=== PATIENT | male | born 1950 | race Caucasian/White ===

== ENCOUNTER 2020-05-31 19:55 | Inpatient (IN) | payer MEDICARE, OTHER ==
[~2020-05-31] VITALS: Ht 170.2 cm; Wt 93.6 kg
[2020-05-31] MEDS ORDERED: ATOR40TA75 PO (20:44)
[2020-05-31] MEDS ORDERED: LOSA50TA88 PO (20:44)
[2020-05-31] MEDS ORDERED: FLON1SPR (20:44)
[2020-05-31] MEDS ORDERED: MAPA500T2 PO (20:44)
[2020-05-31] MEDS ORDERED: LATA0.0015 OP (20:44)
[2020-05-31] MEDS ORDERED: ALLO100T PO (20:44)
[2020-05-31] MEDS ORDERED: CETI10CA13 PO (20:44)
[2020-05-31] MEDS ORDERED: CYAN500T14 PO (20:47)
[2020-05-31] MEDS ORDERED: ONETAB9 PO (20:47)
[2020-05-31] MEDS ORDERED: ASPI81CH33 PO (20:47)
[2020-05-31] MEDS ORDERED: FISH1000 PO (20:47)
[2020-05-31] MEDS ORDERED: NS 1,000 ML IV ONE (21:30)
[2020-05-31 21:34] LABS: BASO % 0.3 % (0.0-1.0); EOS % 0.3 % (0.0-3.0); HEMATOCRIT 32.6 % (42.0-52.0); HEMOGLOBIN 10.5 g/dl (13.5-17.5); LYMPH # 1.4 10^3/uL (1.5-5.0); LYMPH % 13.9 % (24.0-44.0); MEAN CORPUSCULAR HEMOGLOBIN 32.4 pg (27.0-33.0); MEAN CORPUSCULAR HGB CONC 32.2 g/dl (32.0-36.5); MEAN CORPUSCULAR VOLUME 100.6 fl (80.0-96.0); MONO # 0.5 10^3/uL (0.0-0.8); MONO % 5.1 % (0.0-5.0); NEUTROPHILS # 8.2 10^3/uL (1.5-8.5); NEUTROPHILS % 80.2 % (36.0-66.0); PLATELET COUNT, AUTOMATED 241 10^3/uL (150-450); RED BLOOD COUNT 3.24 10^6/uL (4.30-6.10); WHITE BLOOD COUNT 10.2 10^3/uL (4.0-10.0)
[2020-05-31 21:47] LABS: ALT/SGPT 32 U/L (12-78); BILIRUBIN,DIRECT 0.3 MG/DL (0.0-0.2); BLOOD UREA NITROGEN 70 MG/DL (7-18); CALCIUM LEVEL 9.4 MG/DL (8.8-10.2); CARBON DIOXIDE LEVEL 28 MEQ/L (21-32); CHLORIDE LEVEL 103 MEQ/L (98-107); CK-MB VALUE MASS 1.9 NG/ML (<3.6); CPK CREATINE PHOSPHOKINASE 129 U/L (39-308); GLOMERULAR FILTRATION RATE 58.1 (>42); GLUCOSE, FASTING 99 MG/DL (70-100); MB/CK RELATIVE INDEX 1.47 (< OR =4); POTASSIUM SERUM 5.3 MEQ/L (3.5-5.1); SODIUM LEVEL 138 MEQ/L (136-145); TOTAL PROTEIN 6.8 GM/DL (6.4-8.2); TROPONIN I < 0.02 NG/ML (< 0.10)
[2020-05-31 21:50] LABS: PROTHROMBIN TIME 13.4 SECONDS (12.5-14.3)
--- NOTE | 2020-05-31 21:59 | REPVR ---
PROCEDURE INFORMATION: Exam: CT Head Without Contrast Exam date and time: 05/31/2020 9:45 PM Age: 69 years old Clinical indication: Other: CVA - nursing interventions must not delay CT TECHNIQUE: Imaging protocol: Computed tomography of the head without contrast. Radiation optimization: All CT scans at this facility use at least one of these dose optimization techniques: automated exposure control; mA and/or kV adjustment per patient size (includes targeted exams where dose is matched to clinical indication); or iterative reconstruction. Other technique: STROKE PROTOCOL was implemented. COMPARISON: No relevant prior studies available. FINDINGS: Brain: No acute intracranial hemorrhage is visualized. The white-blanca differentiation is preserved demonstrating no acute territorial type infarct. There are scattered foci of white matter hypodensity, likely representing small vessel ischemic disease. The acuity of the white matter disease is indeterminate. There is no midline shift. Artifact limits evaluation of the dalila. Cerebral ventricles: There is mild to moderate prominence of the ventricles and sulci, compatible with atrophy. Bones/joints: The calvarium demonstrates no evidence for a depressed fracture. Paranasal sinuses: Visualized sinuses are unremarkable. No fluid levels. Mastoid air cells: No mastoid effusion. Vasculature: Intracranial atherosclerosis visualized. Soft tissues: Unremarkable. IMPRESSION: 1. No acute intracranial hemorrhage or acute territorial type infarct. 2. There are scattered foci of white matter hypodensity, likely representing small vessel ischemic disease. 3. Mild to moderate atrophy. 4. If further evaluation is clinically indicated, an MRI of the brain is recommended. ASSESSMENT: Gail Stroke Program Early CT Score (ASPECTS) = 10 Electronically signed by: Ministerio Viera On 05/31/2020 21:59:24 PM
--- NOTE | 2020-05-31 22:01 | REPVR ---
PROCEDURE INFORMATION: Exam: XR Chest, 1 View Exam date and time: 05/31/2020 9:47 PM Age: 69 years old Clinical indication: Other: CVA TECHNIQUE: Imaging protocol: XR of the chest Views: 1 view. COMPARISON: No relevant prior studies available. FINDINGS: Lungs: There is no visualized lung consolidation. The lungs are clear. Pleural space: No pleural effusion. No pneumothorax. Heart/Mediastinum: No cardiomegaly. Vasculature: There is atherosclerotic calcification of the aortic arch. Diaphragm: Elevation of the left hemidiaphragm. Bones/joints: Hypertrophic degenerative changes are noted involving the spine. Osteopenia. IMPRESSION: 1. There is no visualized lung consolidation. 2. Elevation of the left hemidiaphragm. Electronically signed by: Ministerio Viera On 05/31/2020 22:01:17 PM
[2020-05-31 22:53] LABS: RSV AMPLIFICATION NEGATIVE (NEGATIVE)
[2020-05-31 23:51] LABS: AMPHETAMINES LEVEL URINE NEGATIVE (NEGATIVE); BARBITURATES URINE NEGATIVE (NEGATIVE); BENZODIAZEPINES URINE NEGATIVE (NEGATIVE); CANNABINOIDS URINE NEGATIVE (NEGATIVE); COCAINE METABOLITE URINE NEGATIVE (NEGATIVE); METHADONE URINE NEGATIVE (NEGATIVE); OPIATES URINE NEGATIVE (NEGATIVE); PHENCYCLIDINE URINE NEGATIVE (NEGATIVE)
--- OUTSIDE RECORDS SUMMARY | 2020-06-01 01:48 | CCD ---
Author Author [facility] Organization [facility] Address Unknown Phone Unavailable Care Team Providers Care Premix Operator Concentrate Name Role Phone Radha Corbett SLITTER AND REWINDER Unavailable Radha Corbett SLITTER AND REWINDER Unavailable Radha Corbett SLITTER AND REWINDER Unavailable Radha Corbett SLITTER AND REWINDER Unavailable Radha Corbett SLITTER AND REWINDER Unavailable Radha Corbett SLITTER AND REWINDER Unavailable Radha Corbett SLITTER AND REWINDER Unavailable Radha Corbett SLITTER AND REWINDER Unavailable Lolis Batista MD Unavailable Unavailable Lolis Batista MD Unavailable Unavailable Lolis Batista MD Unavailable Unavailable Lolis Batista MD Unavailable Unavailable Lolis Batista MD Unavailable Unavailable Lolis Batista MD Unavailable Unavailable Lolis Batista MD Unavailable Unavailable Lolis Batista MD Unavailable Unavailable Lolis Batista MD Unavailable Unavailable Lolis Batista MD Unavailable Unavailable Lolis Batista MD Unavailable Unavailable Lolis Batista MD Unavailable Unavailable Lolis Batista MD Unavailable Unavailable RASHIDA, R ANGELA ASSOCIATE PUBLISHER Unavailable Unavailable RASHIDA, R ANGELA ASSOCIATE PUBLISHER Unavailable Unavailable RASHIDA, R ANGELA ASSOCIATE PUBLISHER Unavailable Unavailable RASHIDA, R ANGELA ASSOCIATE PUBLISHER Unavailable Unavailable RASHIDA, R ANGELA ASSOCIATE PUBLISHER Unavailable Unavailable RASHIDA, R ANGELA ASSOCIATE PUBLISHER Unavailable Unavailable RASHIDA, R ANGELA ASSOCIATE PUBLISHER Unavailable Unavailable RASHIDA, R ANGELA ASSOCIATE PUBLISHER Unavailable Unavailable RASHIDA, R ANGELA ASSOCIATE PUBLISHER Unavailable Unavailable RASHIDA, R ANGELA ASSOCIATE PUBLISHER Unavailable Unavailable RASHIDA, R ANGELA ASSOCIATE PUBLISHER Unavailable Unavailable RASHIDA, R ANGELA ASSOCIATE PUBLISHER Unavailable Unavailable RASHIDA, R ANGELA ASSOCIATE PUBLISHER Unavailable Unavailable RASHIDA, R ANGELA ASSOCIATE PUBLISHER Unavailable Unavailable RASHIDA, R ANGELA ASSOCIATE PUBLISHER Unavailable Unavailable RASHIDA, R ANGELA ASSOCIATE PUBLISHER Unavailable Unavailable RASHIDA, R ANGELA ASSOCIATE PUBLISHER Unavailable Unavailable RASHIDA, R ANGELA ASSOCIATE PUBLISHER Unavailable Unavailable RASHIDA, R ANGELA ASSOCIATE PUBLISHER Unavailable Unavailable RASHIDA, R ANGELA ASSOCIATE PUBLISHER Unavailable Unavailable RASHIDA, R ANGELA ASSOCIATE PUBLISHER Unavailable Unavailable RASHIDA, R ANGELA ASSOCIATE PUBLISHER Unavailable Unavailable RASHIDA, R ANGELA ASSOCIATE PUBLISHER Unavailable Unavailable RASHIDA, R ANGELA ASSOCIATE PUBLISHER Unavailable Unavailable RASHIDA, R ANGELA ASSOCIATE PUBLISHER Unavailable Unavailable RASHIDA, R ANGELA ASSOCIATE PUBLISHER Unavailable Unavailable RASHIDA, R ANGELA ASSOCIATE PUBLISHER Unavailable Unavailable RASHIDA, R ANGELA ASSOCIATE PUBLISHER Unavailable Unavailable RASHIDA, R ANGELA ASSOCIATE PUBLISHER Unavailable Unavailable RASHIDA, R ANGELA ASSOCIATE PUBLISHER Unavailable Unavailable RASHIDA, R ANGELA ASSOCIATE PUBLISHER Unavailable Unavailable RASHIDA, R ANGELA ASSOCIATE PUBLISHER Unavailable Unavailable RASHIDA, R ANGELA ASSOCIATE PUBLISHER Unavailable Unavailable RASHIDA, R ANGELA ASSOCIATE PUBLISHER Unavailable Unavailable RASHIDA, R ANGELA ASSOCIATE PUBLISHER Unavailable Unavailable RASHIDA, R ANGELA ASSOCIATE PUBLISHER Unavailable Unavailable CORONADO, B NADEEM CASEY Unavailable Unavailable CORONADO, B NADEEM CASEY Unavailable Unavailable CORONADO, B NADEEM CASEY Unavailable Unavailable CORONADO, B NADEEM CASEY Unavailable Unavailable CORONADO, B NADEEM CASEY Unavailable Unavailable CORONADO, B NADEEM CASEY Unavailable Unavailable CORONADO, B NADEEM CASEY Unavailable Unavailable CORONADO, B NADEEM CASEY Unavailable Unavailable CORONADO, B NADEEM CASEY Unavailable Unavailable CORONADO, B NADEEM CASEY Unavailable Unavailable CORONADO, B NADEEM CASEY Unavailable Unavailable CORONADO, B NADEEM CASEY Unavailable Unavailable CORONADO, B NADEEM CASEY Unavailable Unavailable CORONADO, B NADEEM CASEY Unavailable Unavailable CORONADO, B NADEEM CASEY Unavailable Unavailable CORONADO, B NADEEM CASEY Unavailable Unavailable CORONADO, B NADEEM CASEY Unavailable Unavailable CORONADO, B NADEEM CASEY Unavailable Unavailable CORONADO, B NADEEM CASEY Unavailable Unavailable CORONADO, B NADEEM CASEY Unavailable Unavailable CORONADO, B NADEEM CASEY Unavailable Unavailable CORONADO, B NADEEM CASEY Unavailable Unavailable CORONADO, B NADEEM CASEY Unavailable Unavailable CORONADO, B NADEEM CASEY Unavailable Unavailable CORONADO, B NADEEM CASEY Unavailable Unavailable CORONADO, B NADEEM CASEY Unavailable Unavailable CORONADO, B NADEEM CASEY Unavailable Unavailable CORONADO, B NADEEM CASEY Unavailable Unavailable Goran Schofield MD Unavailable Unavailable Goran Schofield MD Unavailable Unavailable Goran Schofield MD Unavailable Unavailable Goran Schofield MD Unavailable Unavailable ChanduBradley zhaondra Unavailable Unavailable Chandu, Magendra Unavailable Unavailable ChanduBradley zhaondra Unavailable Unavailable ChanduBradley zhaondra Unavailable Unavailable ChanduBradley zhaondra Unavailable Unavailable ChanduBradley zhaondra MD Unavailable Unavailable ChanduBradley zhaondra MD Unavailable Unavailable Chandu, Magendra MD Unavailable Unavailable Chandu, Magendra MD Unavailable Unavailable ChanduBradley zhaondra MD Unavailable Unavailable ChanduBradley zhaondra MD Unavailable Unavailable ChanduBradley zhaondra MD Unavailable Unavailable Chandu, Magendra MD Unavailable Unavailable ChanduBradley zhaondra MD Unavailable Unavailable ChanduBradley zhaondra MD Unavailable Unavailable ChanduBradley zhaondra MD Unavailable Unavailable ChanduBradley zhaondra MD Unavailable Unavailable ChanduBradley zhaondra MD Unavailable Unavailable ChanduBradley zhaondra MD Unavailable Unavailable ChanduBradley zhaondra MD Unavailable Unavailable ChanduBradley zhaondra MD Unavailable Unavailable ChanduBradley zhaondra MD Unavailable Unavailable ChanduBradley zhaondra MD Unavailable Unavailable ChanduBradley zhaondra Unavailable Unavailable ChanduBradley zhaondra MD Unavailable Unavailable ChanduBradley zhaondra MD Unavailable Unavailable ChanduBradley zhaondra MD Unavailable Unavailable Bradley Schofieldndra Unavailable Unavailable Bradley Schofieldndra Unavailable Unavailable Bradley Schofieldndra Unavailable Unavailable ChanduBradley zhaondra MD Unavailable Unavailable Bradley Schofieldndra Unavailable Unavailable Bradley Schofieldndra Unavailable Unavailable Bradley Schofieldndra Unavailable Unavailable Bradley Schofieldndra Unavailable Unavailable Bradley Schofieldndra Unavailable Unavailable Bradley Schofieldndra Unavailable Unavailable Bradley Schofieldndra Unavailable Unavailable Bradley Schofieldndra Unavailable Unavailable Bradley Schofieldndra Unavailable Unavailable Mychal Lacy MD Unavailable Unavailable Mychal Lacy MD Unavailable Unavailable Mychal Lacy MD Unavailable Unavailable Mychal Lacy MD Unavailable Unavailable Mychal Lacy MD Unavailable Unavailable Mychal Lacy MD Unavailable Unavailable Mychal Lacy MD Unavailable Unavailable Mychal Lacy MD Unavailable Unavailable Mychal Lacy MD Unavailable Unavailable Mychal Lacy MD Unavailable Unavailable Mychal Lacy MD Unavailable Unavailable Ha Griffiths MD Unavailable [phone] Aye, Ha Tarango MD Unavailable [phone] Aye, Ha Tarango MD Unavailable [phone] Aye, Ha Tarango MD Unavailable [phone] Aye, Ha Tarango MD Unavailable [phone] Aye, Ha Tarango MD Unavailable [phone] Venu, A Erwin PA Unavailable Venu, A Erwin PA Unavailable Venu, A Erwin PA Unavailable Venu, A Erwin PA Unavailable Venu, A Erwin PA Unavailable Venu, A Erwin PA Unavailable Venu, A Erwin PA Unavailable Venu, A Erwin PA Unavailable Venu, A Erwin PA Unavailable Hadian, Adelso Unavailable Unavailable Hadian, Adelso Unavailable Unavailable Hadian, Adelso Unavailable Unavailable Hadian, Adelso Unavailable Unavailable Hadian, Adelso Unavailable Unavailable Hadian, Adelso Unavailable Unavailable Hadian, Adelso Unavailable Unavailable Hadian, Adelso Unavailable Unavailable Hadian, Adelso Unavailable Unavailable Hadian, Adelso Unavailable Unavailable Hadian, Adelso Unavailable Unavailable Hadian, Adelso Unavailable Unavailable Hadian, Adelso Unavailable Unavailable Hadian, Adelso Unavailable Unavailable Hadian, Adelso Unavailable Unavailable Hadian, Adelso Unavailable Unavailable Hadian, Adelso Unavailable Unavailable Hadian, Adelso Unavailable Unavailable Hadian, Daelso Unavailable Unavailable Hadian, Adelso Unavailable Unavailable Hadian, Adelso Unavailable Unavailable Hadian, Adelso Unavailable Unavailable Hadian, Adelso Unavailable Unavailable Hadian, Adelso Unavailable Unavailable Hadian, Adelso Unavailable Unavailable Hadian, Adelso Unavailable Unavailable Hadian, Adelso Unavailable Unavailable Hadian, Adelso Unavailable Unavailable Hadian, Adelso Unavailable Unavailable Hadian, Adelso Unavailable Unavailable Hadian, Adelso Unavailable Unavailable Hadian, Adelso Unavailable Unavailable Hadian, Adelso Unavailable Unavailable GALIMIDI CHANDRA DPM, J Chandra DPM Unavailable GALIMIDI CHANDRA DPM, J Chandra DPM Unavailable GALIMIDI CHANDRA DPM, J Chandra DPM Unavailable GALIMIDI CHANDRA DPM, J Chandra DPM Unavailable GALIMIDI CHANDRA DPM, J Chandra DPM Unavailable GALIMIDI CHANDRA DPM, J Chandra DPM Unavailable GALIMIDI CHANDRA DPM, J Chandra DPM Unavailable GALIMIDI CHANDRA DPM, J Chandra DPM Unavailable Bang, Erwin DO Unavailable Unavailable Cuenca, Erwin DO Unavailable Unavailable Cuenca, Erwin DO Unavailable Unavailable Cuenca, Erwin DO Unavailable Unavailable Cuenca, Erwin DO Unavailable Unavailable Cuenca, Erwin DO Unavailable Unavailable Cuenca, Erwin DO Unavailable Unavailable Cuenca, Erwin DO Unavailable Unavailable Cuenca, Erwin DO Unavailable Unavailable Cuenca, Erwin DO Unavailable Unavailable Cuenca, Erwin DO Unavailable Unavailable Cuenca, Erwin DO Unavailable Unavailable Cuenca, Erwin DO Unavailable Unavailable Cuenca, Erwin DO Unavailable Unavailable Cuenca, Erwin DO Unavailable Unavailable Cuenca, Erwin DO Unavailable Unavailable Cuenca, Erwin DO Unavailable Unavailable Re-disclosure Warning The records that you are about to access may contain information from federally-assisted alcohol or drug abuse programs. If such information is present, then the following federally mandated warning applies: This information has been disclosed to you from records protected by federal confidentiality rules (42 CFR part 2). The federal rules prohibit you from making any further disclosure of this information unless further disclosure is expressly permitted by the written consent of the person to whom it pertains or as otherwise permitted by 42 CFR part 2. A general authorization for the release of medical or other information is NOT sufficient for this purpose. The Federal rules restrict any use of the information to criminally investigate or prosecute any alcohol or drug abuse patient.The records that you are about to access may contain highly sensitive health information, the redisclosure of which is protected by Article 27-F of the [facility] Public Health law. If you continue you may have access to information: Regarding HIV / AIDS; Provided by facilities licensed or operated by the [facility] Office of Mental Health; or Provided by the [facility] Office for People With Developmental Disabilities. If such information is present, then the following [facility] mandated warning applies: This information has been disclosed to you from confidential records which are protected by state law. State law prohibits you from making any further disclosure of this information without the specific written consent of the person to whom it pertains, or as otherwise permitted by law. Any unauthorized further disclosure in violation of state law may result in a fine or longterm sentence or both. A general authorization for the release of medical or other information is NOT sufficient authorization for further disc losure. Family History Family Member Name Family Member Gender Family Member Status Date o f Status Description Data Source(s) Unknown Unknown Problem MEDENT (Kaila Schofield MD) Encounters Encounter Providers Location Date Indications Data Source(s ) Outpatient Attender: Sukhdeep Griffiths MD CPSCAORT-[id number] 05/12 09:59:00 AM EST - 05/25/2020 10[facility]. [facility]patient Attender: ANGELA FIELD NP CPSCAORT-LABPNP 05/24/2020 04:22:00 PM EST - 05/24/2020 04:23:00 PM EST L300.5100,L300.5500,L299.9997,L100.0075,L300.5200 [facility] L300.5100,L300.5500,L299.9997,L100.0075, L300.5200 Patient discharged. Outpatient Attender: Dipesh Lacy MD CPSCAORT-SDCSDC 05/09/20 20 07:03:00 AM EST - 05/09/2020 08:43:00 AM EST [facility] CRC SCREEN Patient discharged. Outpatient CPSCAORT-LABEJN 05/06/2020 02:22:[address] [facility] Outpatient Attender: Adelso Barrett ED-LABPNP 08:27:00 AM EST - 05/06/2020 08:28:00 AM EST PRE OP [facility] PRE OP Patient discharged. Outpatient Attender: [facility] 03/08/2020 08:15:00 AM [facility] Outpatient Attender: Erwin MARROQUIN CPSCAORT-[id number] 02/09 09:27:00 AM EDT - 02/23/2020 09:28:00 AM EDT [facility] Patient discharged. Outpatient Attender: Goran Schofield MD [facility] 09:30:00 AM EDT [facility]IVAN[facility] (Goran Schofield MD) Outpatient Attender: Alida RUSSO CPSCAORT-CPSCAORT 0 02/07/2020 08:10:00 AM EDT - 02/07/2020 08:11:00 AM EDT [facility] Patient discharged. Outpatient Attender: NADEEM CORONADO MD CPSCAORT-CPSCAORT 01/30 07:55:00 AM EDT - 01/31/2020 07:56:[address] [facility] Patient discharged. Outpatient Attender: NADEEM CORONADO MD CPSCAORT-CPSCAORT 01/23 07:54:00 AM EDT - 01/24/2020 07:55:[address] [facility] Patient discharged. Outpatient Attender: Quincy Batista MD CPSCAORT-CPSCADER 0 09:13:00 AM EDT - 11/30/2019 09:14:[address] [facility] Patient discharged. Outpatient Attender: Chandra ARTIS DPM DPM CPSCAORT- CPSGNPOD 11/02/2019 09:26:00 AM EDT - 11/02/2019 09:27:00 AM EDT [facility] Patient discharged. Outpatient Attender: Goran Schofield MD [facility] 04/2020 01:30:00 PM EDT [facility] (Goran Schofield MD) Outpatient Attender: Erwin Cuenca DO CPSCAORT-[id number] 2019 01:40:00 PM EDT - 08/19/2019 01:41:[address] [facility] Patient discharged. Outpatient Attender: Goran Schofield MD [facility] 04/2020 01:15:00 PM EDT [facility] (Goran Schofield MD) Outpatient Attender: NADEEM CORONADO MD CPSCAORT-CPSCAORT 07/20 09:43:00 AM EDT - 07/21/2019 09:44:[address] [facility] Patient discharged. Outpatient Attender: NADEEM CORONADO MD CPSCAORT-CPSCAORT 07/13 09:45:00 AM EST - 07/14/2019 09:46:[address] [facility] Patient discharged. Outpatient Attender: NADEEM CORONADO MD CPSCAORT-CPSCAORT 07/07 11:36:00 AM EST - 07/07/2019 11:37:[address] [facility] Patient discharged. Outpatient Attender: ANGELA FIELD NP CPSCAORT-IMACN 07/01/2019 10:43:00 AM EST - 07/01/2019 10:44:00 AM [facility] Outpatient Attender: ANGELA FIELD NP CPSCAORT-LABCN 06/15/2019 02:30:00 PM EST - 06/15/2019 02:31:00 PM EST I10 [facility] al I10 Patient discharged. Outpatient Attender: Quincy Batista MD CPSCAORT-CPSCADER 0 09:01:00 AM EST - 06/07/2019 09:02:[address] [facility] Patient discharged. Outpatient Attender: ANGELA FIELD NP CPSCAORT-LABPNP 06/02/2019 10:51:00 AM EST - 06/02/2019 10:52:00 AM EST I10; E55.9; Z12.5 [facility] pital I10; E55.9; Z12.5 Patient discharged. Outpatient Attender: Erwin Cuenca DO, [facility] 05/26/19 10:54:00 AM EST - 05/26/2019 10:55:00 AM EST I10 [facility] I10 Patient discharged. Outpatient Attender: Sukhdeep Griffiths MD CPSCAORT-[id number] 05/12 10:46:00 AM EST - 05/25/2019 10:47:00 AM [facility] Outpatient Attender: Erwin Cuenca DO CPSCAORT-[id number] 2019 08:43:00 AM EST - 05/20/2019 08:44:[address] [facility] Patient discharged. Outpatient Attender: Goran Schofield MD [facility] 04/2019 12:00:00 PM [facility] (Goran Schofield MD) Insurance Providers Payer name Policy type / Coverage type Policy ID Covered alliance party ID Covered alliance party's relationship to arechiga Policy Arechiga Plan Information [facility] [id number] SP [id number] [facility] [id number] SP [id number] [employer] [id number] Retired [id number] FOR[facility]LY [facility] MEDICARE [id number] Retired [id number] [facility] Commercial [id number] Self [id number] Problems, Conditions, and Diagnoses Code Display Name Description Problem Type Effective Dates Data Source(s) R41.3 Other amnesia OTHER AMNESIA Diagnosis 05/24/2020 04:22:00 PM [facility] N39.41 Urge incontinence URGE INCONTINENCE Diagnosis 05/24/2020 04:22:00 PM [facility] Z86.19 Personal history of other infectious and parasitic diseases PERSONAL HISTORY OF OTHER INFECTIOUS AND PARASITIC DISEASES Diagnosis 07:03:00 AM [facility] M12.88 Other specific arthropathies , not elsewhere classified, other specified site OTH SPECIFIC ARTHROPATHIES, NEC, OTH SITE Diagnosis 05/09/2020 07:03:00 AM [facility] I10 Essential (primary) hypertension ESSENTIAL (PRIMARY) H YPERTENSION Diagnosis 05/09/2020 07:03:00 AM [facility] Z12.11 Encounter for screening for malignant ne oplasm of colon ENCOUNTER FOR SCREENING FOR MALIGNANT NEOPLASM OF COLON Diagnosis 05/09/2020 07:03:0 0 AM [facility] Z11.59 Encounter for screening for other viral diseases ENCOUNTER FOR SCREENING FOR OTHER VIRAL DISEASES Diagnosis 05/06/2020 08:27:00 AM [facility] Z01.812 Encounter for preprocedural laboratory e xamination ENCOUNTER FOR PREPROCEDURAL LABORATORY EXAMINATION Diagnosis 05/06/2020 08:27:00 AM [facility] X32.XXXS Exposure to sunlight, sequela EXPOSURE TO SUNLIGHT, SE QUELA Diagnosis 03/08/2020 08:15:[address] [facility] D22.72 Melanocytic nevi of left lower limb, inc luding hip MELANOCYTIC NEVI OF LEFT LOWER LIMB, INCLUDING HIP Diagnosis 03/08/2020 08:15:00 AM EDT [facility] D22.71 Melanocytic nevi of right lower limb, in cluding hip MELANOCYTIC NEVI OF RIGHT LOWER LIMB, INCLUDING HIP Diagnosis 03/08/2020 08:15:00 AM EDT [facility] D22.62 Melanocytic nevi of left upper limb, inc luding shoulder MELANOCYTIC NEVI OF LEFT UPPER LIMB, INCLUDING SHOULDER Diagnosis 03/08/2020 08:15:[address] [facility] D22.61 Melanocytic nevi of right upper limb, in cluding shoulder MELANOCYTIC NEVI OF RIGHT UPPER LIMB, INCLUDING SHOULDER Diagnosis 03/08/2020 08:15:[address] [facility] L81.4 Other melanin hyperpigmentation OTHER MELANIN HYPERPIG MENTATION Diagnosis 03/08/2020 08:15:00 AM [facility] Z91.89 Other specified personal risk factors, n ot elsewhere classified OTH PERSONAL RISK FACTORS, NOT ELSEWHERE CLASSIFIED Diagnosis 2019 08:15:[address] [facility] L21.8 Other seborrheic dermatitis OTHER SEBORRHEIC DERMATITI S Diagnosis 03/08/2020 08:15:00 AM [facility] L82.1 Other seborrheic keratosis OTHER SEBORRHEIC KERATOSIS Diagnosis 03/08/2020 08:15:00 AM [facility] Z85.828 Personal history of other malignant neop lasm of skin PERSONAL HISTORY OF OTHER MALIGNANT NEOPLASM OF SKIN Diagnosis 03/08/2020 08:15:00 AM [facility] Z12.83 Encounter for screening for malignant ne oplasm of skin ENCOUNTER FOR SCREENING FOR MALIGNANT NEOPLASM OF SKIN Diagnosis 03/08/2020 08:15:00 AM [facility] 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 D22.5 Melanocytic nevi of trunk MELANOCYTIC NEVI OF TRUNK Di agnosis 03/08/2020 08:15:00 AM [facility] L57.0 Actinic keratosis ACTINIC KERATOSIS Diagnosis 03/08/2020 08:15:00 AM [facility] M17.12 Unilateral primary osteoarthritis, left knee UNILATERAL PRIMARY OSTEOARTHRITIS, LEFT KNEE Diagnosis 02/07/2020 08:10:00 AM [facility] M17.10 Unilateral primary osteoarthritis, unspe cified knee UNILATERAL PRIMARY OSTEOARTHRITIS, UNSPECIFIED KNEE Diagnosis 07/21/2019 09:43:00 AM [facility] M79.672 Pain in left foot PAIN IN LEFT FOOT Diagnosis 07/07 11:36:00 AM [facility] M25.572 Pain in left ankle and joints of left fo ot PAIN IN LEFT ANKLE AND JOINTS OF LEFT FOOT Diagnosis 07/07/2019 11:36:00 AM [facility] M25.562 Pain in left knee PAIN IN LEFT KNEE Diagnosis 07/01 10:43:00 AM [facility] Z12.5 Encounter for screening for malignant ne oplasm of prostate ENCOUNTER FOR SCREENING FOR MALIGNANT NEOPLASM OF PROSTATE Diagnosis 0 10:51:00 AM [facility] E55.9 Vitamin D deficiency, unspecified VITAMIN D DEFI CIENCY, UNSPECIFIED Diagnosis 06/02/2019 10:51:00 AM [facility] I10 Essential (primary) hypertension ESSENTIAL (PRIMARY) H YPERTENSION Diagnosis 05/26/2019 10:54:00 AM [facility] Z68.36 Body mass index (BMI) 36.0-36.9, adult B KIRSTIE MASS INDEX (BMI) 36.0-36.9, ADULT Diagnosis 05/20/2019 08:43:00 AM [facility] E66.01 Morbid (severe) obesity due to excess ca lories MORBID (SEVERE) OBESITY DUE TO EXCESS CALORIES Diagnosis 05/20/2019 08:43:00 AM [facility] R53.83 Other fatigue OTHER FATIGUE Diagnosis 05/20/2019 08:43:00 AM [facility] G47.33 Obstructive sleep apnea (adult) (pediatr ic) OBSTRUCTIVE SLEEP APNEA (ADULT) (PEDIATRIC) Diagnosis 05/20/2019 08:43:00 AM [facility] E78.2 Mixed hyperlipidemia MIXED HYPERLIPIDEMIA Diagnosis 05/20/2019 08:43:00 AM [facility] I49.8 Other specified cardiac arrhythmias OTHER SPECIF IED CARDIAC ARRHYTHMIAS Diagnosis 05/20/2019 08:43:00 AM [facility] Surgeries/Procedures Procedure Description Date Indications Data Source(s) Injection, propofol, 10 mg 05/09/2020 12:00:00 AM [facility] COLONOSCOPY FLX DX W/WO COLLJ SPECIMENS DIAGNOSTIC COLONOSCO PY 05/09/2020 12:00:00 AM [facility] Inspection of Lower Intestinal Tract, Vi a Natural or Artificial Opening Endoscopic INSPECTION OF LOWER INTESTINAL TRACT, ENDO 05/09/2020 12:00:00 AM [facility] [id number] SARS-COV-2 COVID-19 AMP PRB 05/06/2020 12:00:00 AM [facility] outpatient clinic visit for assessment and kate [place] of a patient Hospital Outpatient Clinic Visit 03/08/2020 12:00:00 AM [facility] DESTRUCTION PREMALIGNANT LESION 2-14 EA DESTRUCT PREMALG LES 2-14 03/08/2020 12:00:00 AM [facility] DESTRUCTION PREMALIGNANT LESION 1ST DESTRUCT PREMALG LESION 03/08/2020 12:00:00 AM [facility] ARTHROCENTESIS ASPIR&/INJECTION MAJOR JT/BURSA DRAIN/INJ LUIS NT/BURSA W/O US 02/07/2020 12:00:00 AM [facility] Hyaluronan or derivative, synvisc or syn visc-one, for intra-articular injection, 1 mg 02/07/2020 12:00:00 AM [facility] RADEX ANKLE COMPLETE MINIMUM 3 VIEWS X-RAY EXAM OF ANKLE 12:00:00 AM [facility] RADIOLOGIC EXAMINATION KNEE 3 VIEWS X-RAY EXAM OF KNEE 3 12:00:00 AM [facility] THYROXINE FREE ASSAY OF FREE THYROXINE 06/15/2019 12:00:00 AM [facility] THYROID STIMULATING HORMONE TSH ASSAY THYROID STIM HORMONE 0 06/15/2019 12:00:00 AM [facility] TRIIODOTHYRONINE T3 FREE FREE ASSAY (FT-3) 06/15/2019 12:00:00 AM E [facility] BASIC METABOLIC PANEL CALCIUM TOTAL METABOLIC PANEL TOTAL CA 06/15/2019 12:00:00 AM [facility] DESTRUCTION PREMALIGNANT LESION 15/> DESTROY PREMAL LESIONS 15/> 06/07/2019 12:00:00 AM [facility] ECHO TTHRC R-T 2D W/WOM-MODE COMPL SPEC&COLR DOP TTE W/DOPPL ER COMPLETE 05/26/2019 12:00:00 AM [facility] Results ID Date Data Source [id number] 05/09/2020 08:12:00 AM [facility] Name: FRITZ RUIZ : 1950 Age/Sex: 69M Attending Physician: Dipesh Lacy MD Med Rec #: [id number] Admission Date: 05/09/20 Room #: Admitting Physician: Report Number: [id number] _ cc: SERA Reyes; Dipesh Lacy MD Send Report To: Report Status - Signed Endoscopy Department Patient Name: Fritz Ruiz Attending MD: Dipesh Lacy MD Instrument Name: [id number] Procedure Date No Time: 05/09/2020 Date of : 1950 Procedure: Colonoscopy Indications: Screening for colorectal malignant neoplasm Providers: Dipesh Lacy MD Referring MD: Requesting Provider: Medicines: See the Anesthesia note for documentation of the administered medications Complications: No immediate complications. Procedure: Pre-Anesthesia Assessment: - Prior to the procedure, a History and Physical was performed, and patient medications and allergies were reviewed. The patient's tolerance of previous anesthesia was also reviewed. The risks and benefits of the procedure and the sedation options and risks were discussed with the patient. All questions were answered, and informed consent was obtained. Prior Anticoagulants: The patient has taken no previous anticoagulant or antiplatelet agents. ASA Grade Assessment: III - A patient with s evere systemic disease. After reviewing the risks and benefits, the patient was deemed in satisfactory condition to undergo the procedure. After I obtained informed consent, the scope was passed under direct vision. Throughout the procedure, the patient's blood pressure, pulse, and oxygen saturations were monitored continuously. The MODEL # [id number],SERIAL #[id number] pediatric colonoscopy scope was introduced through the anus and advanced to the cecum, identified by appendiceal orifice and ileocecal valve. The colonoscopy was performed with difficulty due to inadequate bowel prep. The patient tolerated the procedure well. The quality of the bowel preparation was evaluated using the BBPS ([place] Bowel Preparation Scale) with scores of: Right Colon = 2 (minor amount of residual staining, small fragments of stool and/or opaque liquid, but mucosa seen well), Transverse Colon = 1 (portion of mucosa seen, but other areas not well seen due to staining, residual stool and/or opaque liquid) and Left Colon = 1 (portion of mucosa seen, but other areas not well seen due to staining, residual stool and/or opaque liquid). The total BBPS score equals 4. Findings: The entire examined colon appeared normal on direct and retroflexion views. Impression: - The entire examined colon is normal on direct and retroflexion views. - No specimens collected. Recommendation: - Discharge patient to home. - Discharge patient to home. - High fiber diet. - Use fiber, for example Citrucel, Fibercon, Konsyl or Metamucil. - Repeat colonoscopy in 1 year for surveillance. - Return to primary care physician PRN. Dipesh Lacy MD 05/09/2020 8:12:36 AM This report has been signed electronically. Number of Addenda: 0 Note Initiated On: 05/09/2020 7:45 AM 50 [facility] [id number] REPORT SIGNATURE ON FILE Dictated By: Dipesh Lacy MD <Electronically signed by Dipesh Lacy MD in OV> 05/09/2013 Dictation Date/Time: 05/09/20 0745 Transcribed Date/Time: 05/09/20 08/IATRICS Name Value Range Interpretation Code Description Data Fallon rce(s) Supporting Document(s) ID Date Data Source [id number] 05/09/2020 06:56:00 AM EST [facility] Name Value Range Interpretation Code Description Data Fallon rce(s) Supporting Document(s) Respiratory specimen severe acute respir atory syndrome coronavirus 2 (SARS-CoV-2) RNA [facility] This lab was ordered by [facility] Lolis ariza and reported by [facility]. ID Date Data Source [id number] 05/09/2020 06:56:00 AM [facility] COVID-19 Specimen Source NASOPHARYNGEAL Is Patient admitted or to be admitted? NFirst test? NOEmployed in healthcare? NOSymptomatic per CDC? NOHospitalized? NOICU? NOResident in congregated care? ex retirement, ARC NO? NO Name Value Range Interpretation Code Description Data Fallon rce(s) Supporting Document(s) SARS-CoV-2 RNA Negative Normal (applies to non-numeric r esults) [facility] Negative results do not preclude 2019 oV infection and should not be used as the sole basis for treatment or other patient management decisions. Negative results must be combined with clinical observations, patient history, and epidemiological information. This test was developed and its performance characteristics determined by [facility]. It has not been cleared or approved by the US Food and Drug Administration. FDA does not require this test to go through premarket FDA review. This test is used for clinical purposes. It should not be regarded as investigational or for research. This laboratory is certified under the Clinical Laboratory Improvement Amendments (CLIA) as qualified to perform high complexity clinical laboratory testing. This test is based on the CDC COVID-19 Emergency Use Authorization (EUA) assay, with minor modification as defined by the FDA Performed on the [employer]. THIS IS A STATE REPORTABLE COMMUNICABLE DISEASE. Performing Lab Normal (applies to non-numeric r esults) [facility] RESULT: [employer] 7 [facility] Lab COVID-1 9 Specimen Source: ASSOCIATE PUBLISHER First test?: N Employed in healthcare?: N Symptomatic per CDC?: N Hospitalized?: N ICU?: N Resident in congregated care? ex retirement, ARC: N ?: N Please indicate the Triage TierN PREOP Test performed [place] [address] ID Date Data Source [id number] 05/09/2020 07:07:00 AM EST [facility] COVID-19 Specimen Source NASOPHARYNGEAL Is Patient admitted or to be admitted? NFirst test? NOEmployed in healthcare? NOSymptomatic per CDC? NOHospitalized? NOICU? NOResident in congregated care? ex retirement, ARC NO? NO Name Value Range Interpretation Code Description Data Fallon rce(s) Supporting Document(s) SARS-CoV-2 RNA Negative Normal (applies to non-numeric r esults) [facility] Negative results do not preclude 2019-nC oV infection and should not be used as the sole basis for treatment or other patient management decisions. Negative results must be combined with clinical observations, patient history, and epidemiological information. This test was developed and its performance characteristics determined by [facility]. It has not been cleared or approved by the US Food and Drug Administration. FDA does not require this test to go through premarket FDA review. This test is used for clinical purposes. It should not be regarded as investigational or for research. This laboratory is certified under the Clinical Laboratory Improvement Amendments (CLIA) as qualified to perform high complexity clinical laboratory testing. This test is based on the CDC COVID-19 Emergency Use Authorization (EUA) assay, with minor modification as defined by the FDA Performed on the [employer]. THIS IS A STATE REPORTABLE COMMUNICABLE DISEASE. Performing Lab Normal (applies to non-numeric r esults) [facility] RESULT: [employer] 7 [facility] Lab COVID-1 9 Specimen Source: ASSOCIATE PUBLISHER First test?: N Employed in healthcare?: N Symptomatic per CDC?: N Hospitalized?: N ICU?: N Resident in congregated care? ex retirement, ARC: N ?: N Please indicate the Triage TierN PREOP Test performed or referred by The [address] [address] ID Date Data Source [id number] 07/07/2019 05:19:00 PM [facility] Name: FRITZ RUIZ : 1950 Age/Sex: 69M Ordering Provider: Nadeem Coronado MD Med Rec #: [id number] Reg Status: [facility] Room #: Date of Service: 07/07/19 Report Number: [id number] cc:SERA Reyes; Nadeem Coronado MD Send Report To: [id number] XRP/XR Ankle Lt Min. 3 Views Reason for exam: LEFT ANKLE PAIN FINDINGS: I see no acute appearing fracture. Ankle mortise is smooth and symmetrical. Significant spurring about the ankle joint is not seen. There maybeslight thickening about the level of the interosseous membrane along the medial side of the distal tibia. This may reflect previous injury. There is some calcaneal spurring noted at the plantar tendon fascia insertion level, mild. What is seen of the base of the fifth metatarsal appears intact. Atheroscleroticvascular calcification is noted. IMPRESSION: Some degenerative type changes as above. No acute abnormality appreciated. Atherosclerotic vacular calcifications noted. Fluoroscopy time in seconds: Number of Exposures: Time Portable Image Performed: Contrast Agent in ml: Method of Administration: REPORT SIGNATURE ON FILE Reported By: Amy Bullard MD <Electronically signed by Amy Ott MD> 07/08/19 1504 Dictation Date/Time: 07/07/19 1328 Transcribed Date/Time: 07/07/19 1719 Hvac Designer: ARLENE Name Value Range Interpretation Code Description Data Fallon rce(s) Supporting Document(s) ID Date Data Source [id number] 07/01/2019 04:49:00 PM [facility] Name: FRITZ RUIZ : 1950 Age/Sex: 69M Ordering Provider: SERA Reyes Med Rec #: [id number] Reg Status: [facility] REF Room #: Date of Service: 07/01/19 Report Number: [id number] cc:SERA Reyes Send Report To: [id number] XRP/XR Knee Lt 3 View Reason for exam: PAIN IN LT KNEE FINDINGS: Prominent medial joint space narrowing is identified. There is also narrowing at the patellofemoral and lateral joint spaces to a lesser degree. No evidence of an acute fracture or dislocation is identified. No evidence of a joint effusion is identified. Soft tissues appear unremarkable. IMPRESSION: Degenerative changes. No acute findings. REPORT DICTATED BY STEFANIA HILLMAN, REVIEWED AND SIGNED BY DR. ARRIAGA Fluoroscopy time in seconds: Number of Exposures: Time Portable Image Performed: Contrast Agent in ml: Method of Administration: REPORT SIGNATURE ON FILE Reported By: Stefania Arriaga MD <Electronically signed by Graham Arriaga MD> 07/02/19 0800 Dictation Date/Time: 07/01/19 1139 Transcribed Date/Time: 07/01/19 1649 Hvac Designer: ARLENE Name Value Range Interpretation Code Description Data Fallon rce(s) Supporting Document(s) ID Date Data Source [id number] 06/15/2019 05:22:00 PM [facility] Name Value Range Interpretation Code Description Data Fallon rce(s) Supporting Document(s) Sodium 141 mmol/L 137-145 Normal (applies to non-numeric resul ts) [facility] Potassium 3.5-5.1 Normal (applies to non-numeric resul ts) [facility] Chloride 108 mmol/L 98-112 Normal (applies to non-numeric resul ts) [facility] Carbon Dioxide CO2 22.0-33.0 Normal (applies to non-numer ic results) [facility] Anion Gap 4.0-11.0 Normal (applies to non-numeric resul ts) [facility] BUN 21 mg/dL 9-20 Above high normal [facility] Creatinine 0.80-1.50 Normal (applies to non-numeric resul ts) [facility] GFR 61 mL/min >60 Normal (applies to non-numeric resul ts) [facility] Result based on MDRD formula. Glucose Level 102 mg/dL 74-99 Above high normal [facility] The reference range is only applicable w hen fasting. Calcium-Uncorrected 8.4-10.2 Normal (applies to non-nume julieth results) [facility] Corrected Calcium 8.4-10.2 Normal (applies to non-numeri c results) [facility] ID Date Data Source [id number] 06/15/2019 05:22:00 PM EST [facility] Name Value Range Interpretation Code Description Data Fallon rce(s) Supporting Document(s) Free T4 (Free Thyroxine) 0.76-1.46 Normal (applies to non -numeric results) [facility] ID Date Data Source [id number] 06/15/2019 05:22:00 PM EST [facility] Name Value Range Interpretation Code Description Data Fallon rce(s) Supporting Document(s) Free T3 2.18-3.98 Normal (applies to non-numeric resul ts) [facility] ID Date Data Source [id number] 06/15/2019 05:22:00 PM EST [facility] Name Value Range Interpretation Code Description Data Fallon rce(s) Supporting Document(s) Thyroid Stimulate Hormone TSH 0.358-3.740 No rmal (applies to non-numeric results) [facility] ID Date Data Source [id number] 06/02/2019 04:23:00 PM EST [facility] Name Value Range Interpretation Code Description Data Fallon rce(s) Supporting Document(s) Sodium 138 mmol/L 137-145 Normal (applies to non-numeric resul ts) [facility] Potassium 3.5-5.1 Normal (applies to non-numeric resul ts) [facility] Chloride 106 mmol/L 98-112 Normal (applies to non-numeric resul ts) [facility] Carbon Dioxide CO2 22.0-33.0 Normal (applies to non-numer ic results) [facility] Anion Gap 4.0-11.0 Normal (applies to non-numeric resul ts) [facility] BUN 18 mg/dL 9-20 Normal (applies to non-numeric resul ts) [facility] Creatinine 0.80-1.50 Normal (applies to non-numeric resul ts) [facility] GFR 56 mL/min >[address] [facility] Result based on MDRD formula. Glucose Level 99 mg/dL 74-99 Normal (applies to non-numeric re sults) [facility] The reference range is only applicable w hen fasting. Calcium-Uncorrected 8.4-10.2 Normal (applies to non-nume julieth results) [facility] Corrected Calcium 8.4-10.2 Normal (applies to non-numeri c results) [facility] Bilirubin,Total 0.2-1.3 Normal (applies to non-numeric results) [facility] SGOT(AST) 29 U/L 17-59 Normal (applies to non-numeric resul ts) [facility] SGPT(ALT) 40 U/L 21-72 Normal (applies to non-numeric resul ts) [facility] Alkaline Phosphatase 67 U/L 38-126 Normal (applies to non-num carlos results) [facility] can increase Alkaline Phosp le vels up to 2 times the normal adult value. Normal values for children and adolescents are 2 to 3 times the normal adult value. Total Protein 6.3-8.2 Normal (applies to non-numeric re sults) [facility] Albumin 3.5-5.0 Normal (applies to non-numeric resul ts) [facility] ID Date Data Source [id number] 06/02/2019 04:23:00 PM EST [facility] Name Value Range Interpretation Code Description Data Fallon rce(s) Supporting Document(s) Triglycerides 89 mg/dL 0-150 Normal (applies to non-numeric re sults) [facility] Cholesterol 100 mg/dL 0-200 Normal (applies to non-numeric resu lts) [facility] LDL Cholesterol,Direct 48 mg/dL <100 Normal (applies to non-n umeric results) [facility] LDL Interpretative Data Optimal <100 (mg/dL) Near optimal 100-129 (mg/dL) Borderline High 130-159 (mg/dL) High 160-189 (mg/dL) Very High >190 (mg/dL) HDL Cholesterol 39 mg/dL 40-[address] [facility] CHOL/HDL Ratio Normal (applies to non-numeric r esults) [facility] NATIONAL CHOLESTEROL GUIDEL [facility] ([facility]) guidelines for classificaton, testing and management of cholesterol levels in adults over 20 years of age. This new classification creates three categories of risk for coronary heart disease, regardless of age or sex, according to total amd LDL cholesterols levels: Based on total cholesterol level Desirable <200 mg/dl Borderline-high 200-239 mg/dl High >=240 mg/dl Based on cholesterol ratio CHD RISK CHOL/HDL RATIO MALE FEMALE 0.5 x Average 3.4 3.3 1.0 x Average 5.0 4.4 2.0 x Average 9.6 7.1 3.0 x Average 13.5 11.0 ID Date Data Source [id number] 06/02/2019 04:23:00 PM [facility] Value Range Interpretation Code Description Data Fallon rce(s) Supporting Document(s) PSA,Annual Screen <4.10 Normal (applies to non-numeri c results) [facility] [employer] [place] Methodology:Chemiluminesce nt immunology based on LOCI technology. PSA concentrations should not be interpreted as absolute evidence for the presence or absence of Prostatic Cancer. The PSA value should be used in conjunction with information available from clinical evaluation and other diagnostic procedures such as AILYN. Test results by other methods or kits may not be used interchangeably. ID Date Data Source [id number] 06/02/2019 04:23:00 PM [facility] Value Range Interpretation Code Description Data Fallon rce(s) Supporting Document(s) Vitamin B12 193-986 Above high normal [facility] ID Date Data Source [id number] 06/02/2019 04:23:00 PM [facility] Value Range Interpretation Code Description Data Fallon rce(s) Supporting Document(s) Thyroid Stimulate Hormone TSH 0.358-3.740 Above high shania l [facility] ID Date Data Source [id number] 06/02/2019 02:38:00 PM [facility] Value Range Interpretation Code Description Data Fallon rce(s) Supporting Document(s) Creatinine,Urine Normal (applies to non-numeric results) [facility] Interpret with care as there is no estab lished reference range associated with this assay's methodology that pertains to this particular sex and/or age. Microalbumin,Urine <1.7 Normal (applies to non-numer ic results) [facility] Albumin/Creatinine Ratio,Urine Normal (applies to non-numeric results) [facility] Reference Ranges for Microalbumin,spot: Normal <30 ug/mg creatinine Microalbuminuria 30-300 ug/mg creatinine Clinical Albuminuria >300 ug/mg creatinine ID Date Data Source [id number] 06/02/2019 02:12:00 PM EST [facility] Name Value Range Interpretation Code Description Data Fallon rce(s) Supporting Document(s) Vitamin D,Total (25OH) 30.0-100.0 Normal (applies to non-n umeric results) [facility] Reference Range: <10 ng/mL: Deficien t 10-30 ng/mL: Insufficient 30-100 ng/mL: Sufficient >100 ng/mL: Toxicity possible ID Date Data Source [id number] 06/02/2019 01:19:00 PM EST [facility] Name Value Range Interpretation Code Description Data Fallon rce(s) Supporting Document(s) White Blood Count 4.8-10.8 Below low normal [facility] Red Blood Count 4.35-6.08 Normal (applies to non-numeric results) [facility] Hemoglobin 13.0-17.5 Normal (applies to non-numeric resul ts) [facility] Hematocrit 37.7-51.0 Normal (applies to non-numeric resul ts) [facility] Mean Corpuscular Volume 80-[address] [facility] Mean Corpuscular Hemoglobin 27.0-33.[address] [facility] Mean Corpuscular HGB Conc 32.0-36.0 Normal (applies to no n-numeric results) [facility] Red Cell Distribution Width 11.5-14.5 Normal (appli es to non-numeric results) [facility] Platelet Count 241 X10 3/uL 130-450 Normal (applies to non-numeric results) [facility] Mean Platelet Volume 9.6-13.1 Normal (applies to non-num carlos results) [facility] Imm Grans% (AUTO) 0 % 0-2 Normal (applies to non-numeri c results) [facility] Neutrophils % (AUTO) 61 % 40-75 Normal (applies to non-num carlos results) [facility] Lymphocytes % (AUTO) 28 % 21-46 Normal (applies to non-num carlos results) [facility] Monocytes % (AUTO) 8 % 5-12 Normal (applies to non-numer ic results) [facility] Eosinophils % (AUTO) 3 % 1-5 Normal (applies to non-num carlos results) [facility] Basophils % (AUTO) 1 % 0-1 Normal (applies to non-numer ic results) [facility] Imm Grans# (AUTO) 0.00-0.50 Normal (applies to non-numeri c results) [facility] Neutrophils # (AUTO) 1.5-8.1 Normal (applies to non-num carlos results) [facility] Lymphocytes # (AUTO) 1.0-3.1 Normal (applies to non-num carlos results) [facility] Monocytes # (AUTO) 0.2-1.3 Normal (applies to non-numer ic results) [facility] Eosinophils# (AUTO) 0.0-0.5 Normal (applies to non-nume julieth results) [facility] Basophils # (AUTO) 0.00-0.10 Normal (applies to non-numer ic results) [facility] ID Date Data Source [id number] 05/26/2019 11:12:00 AM [facility] Cardiology Depart ment Cardiology Report [address] [place] [address] __ Name: FRITZ RUIZ : 1950 Age/Sex: 68M Ordering Provider: Erwin Cuenca DO Med Rec #: [id number] Reg Status:REG REF Room #: Date of Service: 05/26/19 Report Number: [id number] cc: SERA Reyes; Erwin Cuenca DO Send Report To: Ordering Phys: Erwin Cuenca DO Referring Phys: Erwin Cuenca DO Exam Location: Echo Lab Exam Date: 05/26/2019 11:44 Ht (in): 66 Wt (lb): 207 Tech/RN: Kathy Pittman Indications: DX: HTN BP 126 / 78 Rhythm: Normal sinus rhythm Technical Quality: Fair Contrast: Total Dose (mL): MEASUREMENTS (Male / Female) Normal Values 2D ECHO Measurement LV Diastolic Diameter PLAX 3.8 cm 4.2 - 6.0 / 3.9 - 5.4 cm LV Systolic Diameter PLAX 3.2 cm 2.1 - 4.0 cm IVS Diastolic Thickness 1.2 cm 0.6 - 1.1 / 0.6 - 1.0 cm IVS Systolic Thickness 1.8 cm LVPW Diastolic Thickness 1.3 cm 0.6 - 1.1 / 0.6 - 1.0 LV Relative Wall Thickness 0.65 Aortic Root Diameter 3.5 cm Aortic Root Diameter Index 1.6 cm/m2 LA Systolic Diameter LX 4 cm 3.0 - 4.1 / 2.7 - 3.9 cm LV Diastolic Volume MOD BP 136 ml LV Systolic Volume MOD BP 42 ml LV Ejection Fraction MOD BP 69.1 % >= 55 % LV Cardiac Index MOD BP 3714 cm3/minm2 LV Diastolic Volume MOD 4C 130 ml LV Systolic Volume MOD 4C 44 ml LV Ejection Fraction MOD 4C 66.2 % LV Cardiac Index MOD 4C 3398 cm3/minm2 LV Diastolic Volume MOD 2C 138 ml LV Systolic Volume MOD 2C 38 ml LV Ejection Fraction MOD 2C 72.5 % LV Cardiac Index MOD 2C 3951 cm3/minm2 LV Diastolic Length 4C 8.3 cm LV Systolic Length 4C 6.2 cm LV Diastolic Area 4C 36.6 cm2 LV Systolic Area 4C 18.1 cm2 LV Ejection Fraction 4C AL 67.1 % LV Cardiac Index 4C AL 3623 cm3/minm2 LV Diastolic Area 2C 36.2 cm2 LV Diastolic Length 2C 8 cm LV Systolic Area 2C 16 cm2 LV Systolic Length 2C 5.8 cm LV Ejection Fraction 2C AL 73.2 % LV Cardiac Index 2C AL 4039 cm3/minm2 RV Internal Dim ED PLAX 3.5 cm Ascending Aorta Diameter 3.4 cm DOPPLER Measurement AV Peak Velocity 139 cm/s AV Peak Gradient 7.7 mmHg AI Peak Velocity 263 cm/s AI Peak Gradient 27.7 mmHg LVOT Peak Velocity 103 cm/s LVOT Peak Gradient 4.2 mmHg Mitral E Point Velocity 91.8 cm/s Mitral A Point Velocity 77.5 cm/s Mitral E to A Ratio 1.2 MV Deceleration Time 201 ms TR Peak Velocity 136 cm/s TR Peak Gradient 7.4 mmHg Right Atrial Pressure 5 mmHg Pulmonary Artery Systolic Pressu 12.4 mmHg Right Ventricular Systolic Press 12.4 mmHg Mitral E to LV E' Lateral Ratio 8.1 LV E' Septal Velocity 9.9 cm/s Mitral E to LV E' Septal Ratio 9.2 FINDINGS Left Ventricle: Normal LV diastolic and systolic dimensions. Overall normal LV systolic function without regional wall motion abnormalities. Estimated LV ejection fraction 60 to 65%. Normal left atrial pressure. Right Ventricle: Normal right ventricular size and function. Right Atrium: Normal right atrial size. Estimated right atrial pressure 3 to 5 mm based on IVC measurements. Left Atrium: Mild left atrial dilation. Mitral Valve: There is mild mitral annulus calcification. Normal antegrade transmitral inflow velocities. No mitral stenosis. There is trace mitral regurgitation. Aortic Valve: Thickened trileaflet aortic valve with normal LVOT and transvalvular aortic velocities. No significant aortic stenosis. There is trace aortic regurgitation. Tricuspid Valve: Trace tricuspid regurgitation. Incomplete TR Doppler tracing precludes accurate calculation of the pulmonary artery systolic pressure. Pulmonic Valve: Mild pulmonary regurgitation (normal variant). Pericardium: There is no pericardial effusion. Aorta: Normal size aortic root and proximal ascending aorta. CONCLUSIONS There is normal LV dimensions and systolic function. Estimated LVEF 60 to 65%. Normal left atrial pressure. Normal RV dimensions with normal systolic function. There is no significant valvular heart disease. Estimated right atrial pressure 3 to 5 mmHg. Incomplete TR Doppler tracing precludes accurate calculation of the pulmonary artery systolic pressure. There is no pericardial effusion.. No prior 2D echocardiogram available for comparison. REPORT SIGNATURE ON FILE 05/26/19 1746 Reported By: Huber Orourke MD <Electronically signed by Huber Orourke MD in [facility]> Exam Date/Time: 05/26/19 1112 Order #: [id number] Dictation Date/Time: 05/26/19 1144 Transcribed Date/Time: Hvac Designer: Name Value Range Interpretation Code Description Data Fallon rce(s) Supporting Document(s) Procedure Vital Signs ID Date Data Source UNK Name Value Range Interpretation Code Description Data Source(s) Body mass index (BMI) [Ratio] 33.9 kg/m2 33.9 k g/m2 MEDENT (Goran Schofield MD) Respiratory rate 16 /min 16 /min MEDENT ( Goran Schofield MD) Oxygen saturation in Arterial blood by Pulse oximetry 96 % 96 % MEDENT (Gorna Schofield MD) Heart rate 65 /min 65 /min MEDENT (Kaila Schofield MD) Diastolic blood pressure 59 mm[Hg] 59 mm[Hg] MEDENT (Goran Schofield MD) Systolic blood pressure 141 mm[Hg] 141 mm[Hg] EDENT (Goran Schofield MD) Body height 66 [in_i] 66 [in_i] MEDENT (Wilder Schofield MD) 5'6" Body weight 210.00 [lb_av] 210.00 [lb_av] MEDEN T (Goran Schofield MD) Body mass index (BMI) [Ratio] 34.3 kg/m2 34.3 k g/m2 REGISENT (Goran Schofield MD) Respiratory rate 16 /min 16 /min MEDENT ( Goran Schofield MD) Oxygen saturation in Arterial blood by Pulse oximetry 98 % 98 % MEDENT (Goran Schofield MD) Heart rate 66 /min 66 /min MEDENT (Kaila Schofield MD) Diastolic blood pressure 72 mm[Hg] 72 mm[Hg] MEDENT (Goran Schofield MD) Systolic blood pressure 140 mm[Hg] 140 mm[Hg] LOPEZ (Goran Schofield MD) Body height 66 [in_i] 66 [in_i] MEDENT (Wilder Schofield MD) 5'6" Body weight 212.38 [lb_av] 212.38 [lb_av] MEDEN T (Goran Schofield MD) Body mass index (BMI) [Ratio] 34.5 kg/m2 34.5 k g/m2 MEDENT (Goran Schofield MD) Respiratory rate 16 /min 16 /min REGISENT ( Goran Schofield MD) Oxygen saturation in Arterial blood by Pulse oximetry 98 % 98 % REGISENT (Goran Schofield MD) Heart rate 68 /min 68 /min MEDENT (Kaila Schofield MD) Diastolic blood pressure 67 mm[Hg] 67 mm[Hg] MEDENT (Goran Schofield MD) Systolic blood pressure 144 mm[Hg] 144 mm[Hg] M EDENT (Goran Schofield MD) Body height 66 [in_i] 66 [in_i] MEDENT (Wilder Schofield MD) 5'6" Body weight 214.00 [lb_av] 214.00 [lb_av] MEDEN T (Goran Schofield MD) lost 7 lbs Body mass index (BMI) [Ratio] 35.7 kg/m2 35.7 k g/m2 MEDENT (Goran Schofield MD) Respiratory rate 16 /min 16 /min HELEN ( Goran Schofield MD) Oxygen saturation in Arterial blood by Pulse oximetry 97 % 97 % HELEN (Goran Schofield MD) Heart rate 74 /min 74 /min HELEN (Kaila Schofield MD) Diastolic blood pressure 65 mm[Hg] 65 mm[Hg] MEDIVANNA (Goran Schofield MD) Systolic blood pressure 139 mm[Hg] 139 mm[Hg] EDENT (Goran Schofield MD) Body height 66 [in_i] 66 [in_i] MEDENT (Wilder Schofield MD) 5'6" Body weight 221.00 [lb_av] 221.00 [lb_av] MEDEN T (Goran Schofield MD) ID Date Data Source [id number] 05/26/2020 12:14:00 AM [facility] Name Value Range Interpretation Code Description Data Source(s) Weight (Calculated Kilograms) 88.[address] [facility] Height (Calculated Centimeters) 170.[address] [facility] Body Mass Index (BMI) 30.5 30.5 [facility] ID Date Data Source [id number] 05/25/2020 05:08:00 AM [facility] Name Value Range Interpretation Code Description Data Source(s) Weight (Calculated Kilograms) 88.[address] [facility] Height (Calculated Centimeters) 170.[address] [facility] Body Mass Index (BMI) 30.5 30.5 [facility] Weight (Calculated Kilograms) 88.[address] [facility] Height (Calculated Centimeters) 170.[address] [facility] Body Mass Index (BMI) 30.5 30.5 [facility] Weight (Calculated Kilograms) 88.[address] [facility] Height (Calculated Centimeters) 170.[address] [facility] Body Mass Index (BMI) 30.5 30.5 [facility] ID Date Data Source [id number] 05/25/2020 12:40:[address] [facility] Name Value Range Interpretation Code Description Data Source(s) Weight (Calculated Kilograms) 88.[address] [facility] Weight [address] [facility] Height (Calculated Centimeters) 170.[address] [facility] Height [address] [facility] Body Mass Index (BMI) 30.5 30.5 [facility] Weight (Calculated Kilograms) 88.[address] [facility] Weight [address] [facility] Height (Calculated Centimeters) 170.[address] [facility] Height [address] [facility] Body Mass Index (BMI) 30.5 30.5 [facility] Weight (Calculated Kilograms) 88.[address] [facility] Weight [address] [facility] Temperature [address] [facility] Respiratory Effort [address] [facility] Respiratory Rate 16 16 [facility] Pulse Rate [address] [facility] Height (Calculated Centimeters) 170.[address] [facility] Height [address] [facility] Blood Pressure 434/72 434/72 [facility] Body Mass Index (BMI) 30.5 30.5 [facility] Weight (Calculated Kilograms) 88.[address] [facility] Weight [address] [facility] Temperature [address] [facility] Respiratory Effort [address] [facility] Respiratory Rate 16 16 [facility] Pulse Rate [address] [facility] Height (Calculated Centimeters) 170.[address] [facility] Height [address] [facility] Blood Pressure 434/72 434/72 [facility] Body Mass Index (BMI) 30.5 30.5 [facility] Weight (Calculated Kilograms) 88.[address] [facility] Weight [address] [facility] Height (Calculated Centimeters) 170.[address] [facility] Height [address] [facility] Body Mass Index (BMI) 30.5 30.5 [facility] Weight (Calculated Kilograms) 88.[address] [facility] Weight [address] [facility] Height (Calculated Centimeters) 170.[address] [facility] Height [address] [facility] Body Mass Index (BMI) 30.5 30.5 [facility] ID Date Data Source [id number] 05/09/2020 06:56:00 AM [facility] Name Value Range Interpretation Code Description Data Source(s) Weight (Calculated Kilograms) 88.[address] [facility] Height (Calculated Centimeters) 170.[address] [facility] Body Mass Index (BMI) 30.5 30.5 [facility] ID Date Data Source [id number] 04/27/2020 11:13:00 AM [facility] Name Value Range Interpretation Code Description Data Source(s) Weight (Calculated Kilograms) 88.[address] [facility] Height (Calculated Centimeters) 170.[address] [facility] Body Mass Index (BMI) 30.5 30.5 [facility] ID Date Data Source [id number] 02/24/2020 12:08:00 AM [facility] Name Value Range Interpretation Code Description Data Source(s) Weight (Calculated Kilograms) 88.[address] [facility] Height (Calculated Centimeters) 170.[address] [facility] Body Mass Index (BMI) 30.5 30.5 [facility] ID Date Data Source [id number] 03/06/2020 10:09:00 AM [facility] Name Value Range Interpretation Code Description Data Source(s) Weight (Calculated Kilograms) 88.[address] [facility] Height (Calculated Centimeters) 170.[address] [facility] Body Mass Index (BMI) 30.5 30.5 [facility] ID Date Data Source [id number] 02/29/2020 07:43:00 AM [facility] Name Value Range Interpretation Code Description Data Source(s) Weight (Calculated Kilograms) 88.[address] [facility] Height (Calculated Centimeters) 170.[address] [facility] Body Mass Index (BMI) 30.5 30.5 [facility] ID Date Data Source [id number] 02/29/2020 07:43:00 AM [facility] Name Value Range Interpretation Code Description Data Source(s) Weight (Calculated Kilograms) 88.[address] [facility] Height (Calculated Centimeters) 170.[address] [facility] Body Mass Index (BMI) 30.5 30.5 [facility] ID Date Data Source [id number] 12/01/2019 12:08:00 AM [facility] Name Value Range Interpretation Code Description Data Source(s) Weight (Calculated Kilograms) 88.[address] [facility] Height (Calculated Centimeters) 170.[address] [facility] Body Mass Index (BMI) 30.5 30.5 [facility] ID Date Data Source [id number] 11/03/2019 12:09:00 AM [facility] Name Value Range Interpretation Code Description Data Source(s) Weight (Calculated Kilograms) 88.[address] [facility] Height (Calculated Centimeters) 170.[address] [facility] Body Mass Index (BMI) 30.5 30.5 [facility] ID Date Data Source [id number] 08/20/2019 12:13:00 AM [facility] Name Value Range Interpretation Code Description Data Source(s) Weight (Calculated Kilograms) 88.[address] [facility] Height (Calculated Centimeters) 170.[address] [facility] Body Mass Index (BMI) 30.5 30.5 [facility] ID Date Data Source [id number] 08/25/2019 11:16:00 AM [facility] Name Value Range Interpretation Code Description Data Source(s) Weight (Calculated Kilograms) 88.[address] [facility] Height (Calculated Centimeters) 170.[address] [facility] Body Mass Index (BMI) 30.5 30.5 [facility] ID Date Data Source [id number] 08/18/2019 12:29:00 PM EDT [facility] Name Value Range Interpretation Code Description Data Source(s) Weight (Calculated Kilograms) 88.[address] [facility] Height (Calculated Centimeters) 170.[address] [facility] Body Mass Index (BMI) 30.5 30.5 [facility] ID Date Data Source [id number] 08/16/2019 10:52:00 AM [facility] Name Value Range Interpretation Code Description Data Source(s) Weight (Calculated Kilograms) 88.[address] [facility] Height (Calculated Centimeters) 170.[address] [facility] Body Mass Index (BMI) 30.5 30.5 [facility] ID Date Data Source [id number] 07/30/2019 09:15:00 AM [facility] Name Value Range Interpretation Code Description Data Source(s) Weight (Calculated Kilograms) 88.[address] [facility] Height (Calculated Centimeters) 170.[address] [facility] Body Mass Index (BMI) 30.5 30.5 [facility] Weight (Calculated Kilograms) 88.[address] [facility] Height (Calculated Centimeters) 170.[address] [facility] Body Mass Index (BMI) 30.5 30.5 [facility] ID Date Data Source [id number] 07/16/2019 09:35:00 AM [facility] Name Value Range Interpretation Code Description Data Source(s) Weight (Calculated Kilograms) 88.[address] [facility] Height (Calculated Centimeters) 170.[address] [facility] Body Mass Index (BMI) 30.5 30.5 [facility] Weight (Calculated Kilograms) 88.[address] [facility] Height (Calculated Centimeters) 170.[address] [facility] Body Mass Index (BMI) 30.5 30.5 [facility] ID Date Data Source [id number] 08/25/2019 11:13:00 AM EDT [facility] Name Value Range Interpretation Code Description Data Source(s) Weight (Calculated Kilograms) 88.[address] [facility] Height (Calculated Centimeters) 170.[address] [facility] Body Mass Index (BMI) 30.5 30.5 [facility] ID Date Data Source [id number] 07/02/2019 10:32:00 AM EST [facility] Name Value Range Interpretation Code Description Data Source(s) Weight (Calculated Kilograms) 88.[address] [facility] Height (Calculated Centimeters) 170.[address] [facility] Body Mass Index (BMI) 30.5 30.5 [facility] Weight (Calculated Kilograms) 88.[address] [facility] Height (Calculated Centimeters) 170.[address] [facility] Body Mass Index (BMI) 30.5 30.5 [facility] ID Date Data Source [id number] 05/26/2019 12:31:00 AM [facility] Name Value Range Interpretation Code Description Data Source(s) Weight (Calculated Kilograms) 88.[address] [facility] Height (Calculated Centimeters) 170.[address] [facility] Body Mass Index (BMI) 30.5 30.5 [facility] ID Date Data Source [id number] 06/29/2019 10:57:00 AM [facility] Name Value Range Interpretation Code Description Data Source(s) Weight (Calculated Kilograms) 88.[address] [facility] Height (Calculated Centimeters) 170.[address] [facility] Body Mass Index (BMI) 30.[address] [place] [address]
--- OUTSIDE RECORDS SUMMARY | 2020-06-01 01:48 | CCD | Continuity of Care Document ---
Author Author Fritz SCHOFIELD Organization Unknown Address [address] [place] [id number] Phone [phone] Care Team Providers Care Electromechanical Equipment Tester Name Role Phone Jazzy Trejo THEATRICAL TROUPER [employer] [phone] Problems Active Problems Provider Date Obstructive sleep apnea syndrome Goran Schofield M.D. Onset : 12/10/2018 Social History Type Date Description Comments Sex Unknown Tobacco Use Start: Unknown End: Unknown Former Cigarette Smo ker Tobacco Use Start: Unknown End: Unknown Former Cigarette Smo ker 1 Pack Daily Cigarette Use Pack Years - 20 Tobacco Use Start: Unknown End: Unknown Quit 1993 Allergies, Adverse Reactions, Alerts Description No Known Drug Allergies Medications Active Medications SIG Qnty Indications Ordering Provide r Date Losartan Potassium 50mg Tablets 1 by mouth every day Unknown Allopurinol 100mg Tablets 1 by mouth every day Unknown Atorvastatin Calcium 40mg Tablets 1 by mouth every day Unknown Latanoprost 0.005% Solution 1 drop in both eyea every day Unknown Ketoconazole 2% Cream apply to affected area twice a week Unknown Aspirin 81mg Tablets DR 1 by mouth every day otc Unknown Multi Vitamin Mens Tablets 1 po qd Unknown Vitamin B12 1000mcg Tablets ER 1 by mouth every day Unknown Fish Oil 1000mg Capsules 1 by mouth once a day Unknown Immunizations Description No Information Available Vital Signs Date Vital Result Comment 02/22/2020 9:30am Weight 210.00 lb Height 66 inches 5'6" BP Systolic 141 mmHg BP Diastolic 59 mmHg Heart Rate 65 /min O2 % BldC Oximetry 96 % Respiratory Rate 16 /min BMI (Body Mass Index) 33.9 kg/m2 10/22/2019 1:29pm Weight 212.38 lb Height 66 inches 5'6" BP Systolic 140 mmHg BP Diastolic 72 mmHg Heart Rate 66 /min O2 % BldC Oximetry 98 % Respiratory Rate 16 /min BMI (Body Mass Index) 34.3 kg/m2 Results Description No Information Available Procedures Description No Information Available Medical Devices Description No Information Available Encounters Type Date Location Provider Dx Diagnosis Office Visit 02/22/2020 9:30a [place] [facility] Goran Schofield M.D. G 47.33 Obstructive sleep apnea (adult) (pediatric) I10 Essential (primary) hyperten adelaida J30.9 Allergic rhinitis, unspecifi ed E66.01 Morbid (severe) obesity due to excess calories Office Visit 10/22/2019 1:30p [place] [facility] Goran Schofield M.D. G 47.33 Obstructive sleep apnea (adult) (pediatric) I10 Essential (primary) hyperten adelaida J30.9 Allergic rhinitis, unspecifi ed Assessments Date Code Description Provider 02/22/2020 G47.33 Obstructive sleep apnea (adult) (pediatric) Goran Schofield.DMatthew 02/22/2020 I10 Essential (primary) hypertension Goran Schofield.D. 02/22/2020 J30.9 Allergic rhinitis, unspecified T [place].DMatthew 02/22/2020 E66.01 Morbid (severe) obesity due to e xcess calories Goran Schofield M.D. 10/22/2019 G47.33 Obstructive sleep apnea (adult) (pediatric) Goran SchofieldDMatthew 10/22/2019 I10 Essential (primary) hypertension Bradley Schofieldnd M.D. 10/22/2019 J30.9 Allergic rhinitis, unspecified T [place].DMatthew Plan of Treatment Future Appointment(s):* 06/26/2020 9:30 am - Goran Schofield M.D. at [facility] [facility] 02/22/2020 - Goran Schofield M.D.* G47.33 Obstructive sleep apnea (adult) (pediatric)* Comments:* Patient is compliant with the CPAP therapy. Patient is getting benefited with symptomatic improvement. Continue with CPAP use. Patient has no concerns with mask or CPAP machine. * I10 Essential (primary) hypertension * J30.9 Allergic rhinitis, unspecified * E66.01 Morbid (severe) obesity due to excess calories Functional Status Description No Information Available Mental Status Description No Information Available Referrals Description No Information Available
[2020-06-01] MEDS ORDERED: ACETAMINOPHEN TAB 650MG DOSE (2X325MG) PO PRN (02:00)
[2020-06-01] MEDS ORDERED: VITMTA PO (02:02)
[2020-06-01] MEDS ORDERED: FISH1000 PO (02:02)
[2020-06-01] MEDS ORDERED: ATOR40TA75 PO (02:02)
[2020-06-01] MEDS ORDERED: ALLO10TA PO (02:02)
[2020-06-01] MEDS ORDERED: XALA0.007 OU (02:02)
[2020-06-01] MEDS ORDERED: ASPI-161 PO (02:02)
[2020-06-01] MEDS ORDERED: IBUP-1720 PO (02:02)
[2020-06-01] MEDS ORDERED: CETI-24 PO (02:02)
[2020-06-01] MEDS ORDERED: FLUTISP (02:02)
[2020-06-01] MEDS ORDERED: CYAN100050 PO (02:02)
[2020-06-01] MEDS ORDERED: KETO2SHA8 TOP (02:10)
[2020-06-01] MEDS ORDERED: FLUO1CRE2 TOP (02:10)
--- NOTE | 2020-06-01 02:28 | HPEPDOC ---
[facility] Medical History & Physical Date of Admission Jun 01, 2020 Date of Service: Jun 01, 2020 Attending Physician: EDGAR SEN MD History and Physical CHIEF COMPLAINT: blurry vision, speech difficulty HISTORY OF PRESENT ILLNESS: Fritz Ruiz is a 69 YO M with history of HTN, Gout, recent cognitive decline who presents to the ED with several hours history of blurry vision, weakness, speech difficulty. He states that while he and his were watching the Presidential Inauguration around 1:00PM, he started to notice that he was having difficulty understanding what was being said on TV. He then went to take his dog out for a walk and realized when he returned home that his vision had gotten blurry or "foggy" and he felt incredibly week. He also reports that his noticed some slurred speech and word-finding difficulty, so she activated EMS around 1800. The patient also reports having chills and loss of appetite at that time. He denies any recent illnesses and the only new medication he has begun taking is Cetirizine for his seasonal allergies. Of note, the patient reports that his PCP has been working him up for some recent cognitive decline and had scheduled for him to have an upcoming MRI. He states that over the past several months he has noticed a gradual decline in his memory. He denies any changes in his gait or other neurologic symptoms such as incontinence, neuropathy, tremors, etc. PAST MEDICAL HISTORY: History of Lyme disease, 2017 History of DM2, diet controlled Recent history memory/cognitive decline Gout HLD Seasonal allergies HTN PAST SURGICAL HISTORY: None SOCIAL HISTORY: Former smoker, quit >30 years ago Occasional EtOH Denies other illicit drugs Lives with , retired FAMILY HISTORY: CAD, stroke in mother and father ALLERGIES: Please see below. REVIEW OF SYSTEMS: Constitutional: No Weight Change, No Fever, No Chills, No Night Sweats, No Fatigue, No Malaise ENT/Mouth: No Hearing Changes, No Ear Pain, No Nasal Congestion, No Sinus Pain, No Hoarseness, No sore throat, No Rhinorrhea, No Swallowing Difficulty Eyes: No Eye Pain, No Swelling, No Redness, No Foreign Body, No Discharge, No Vision Changes Cardiovascular: No Chest Pain, No SOB, No PND, No Dyspnea on Exertion, No Orthopnea, No Claudication, No Edema, No Palpitations Respiratory: No Cough, No Wheezing, No Dyspnea Gastrointestinal: No Nausea, No Vomiting, No Diarrhea, No Constipation, No Pain, No Heartburn, No Anorexia, No Dysphagia, No Hematochezia, No Melena Genitourinary: No Dysuria Musculoskeletal: No Arthralgias, No Myalgias, No Joint Swelling, No Joint Stif fness, No Back Pain, No Neck Pain Skin: No Skin Lesions, No Pruritis, No Hair Changes, No Breast/Skin Changes, No Nipple Discharge Neuro: Reports recent memory decline Psych: No Anxiety/Panic, No Depression, No Insomnia, No Personality Changes, No Delusions Heme/Lymph: No Bruising, No Bleeding, No Transfusions History, No Lymphadenopathy Endocrine: No Polyuria, No Polydipsia, No Temperature Intolerance HOME MEDICATIONS: Please see below. PHYSICAL EXAMINATION: VITAL SIGNS: see below GENERAL: alert and oriented, in no apparent distress, pleasant and conversant in full sentences. HEENT: PERRL, EOMI, Oral mucous membranes are moist without lesions. NECK: The patient has no noted JVD. No adenopathy is appreciated. No thyromegaly CHEST/LUNGS: Lungs are clear bilaterally without rhonchi, rales, or wheezes. There is no subcutaneous air appreciated. There is no tenderness to the chest wall. HEART:Regular rate and rhythm. 3/6 ELADIO heard best at the LUSB radiating to the apex. Distal pulses are 2+. No carotid bruits appreciated. ABDOMEN: Soft, nontender, and nondistended. Bowel sounds are positive. No organomegaly is appreciated. No masses are appreciated. There are no peritoneal signs. There is no [place] sign. EXTREMITIES: R 2nd digit DIP joint slightly inflamed. No peripheral edema. There is no focal long bone tenderness or deformity. SKIN: The patients skin is warm and dry, without rashes or lesions. PSYCHIATRIC: AAO x 3, normal mood/affect NEUROLOGIC: The patient has 5/5 strength to the upper and lower extremities bilaterally. Sensation is intact throughout. Deep tendon reflexes are 2+ in all four extremities. There are no deficits to the cranial nerves. LABORATORY DATA: See below. IMAGING: CT HEAD: FINDINGS: Brain: No acute intracranial hemorrhage is visualized. The white-blanca differentiation is preserved demonstrating no acute territorial type infarct. There are scattered foci of white matter hypodensity, likely representing small vessel ischemic disease. The acuity of the white matter disease is indeterminate. There is no midline shift. Artifact limits evaluation of the dalila. Cerebral ventricles: There is mild to moderate prominence of the ventricles and sulci, compatible with atrophy. Bones/joints: The calvarium demonstrates no evidence for a depressed fracture. Paranasal sinuses: Visualized sinuses are unremarkable. No fluid levels. Mastoid air cells: No mastoid effusion. Vasculature: Intracranial atherosclerosis visualized. Soft tissues: Unremarkable. IMPRESSION: 1. No acute intracranial hemorrhage or acute territorial type infarct. 2. There are scattered foci of white matter hypodensity, likely representing small vessel ischemic disease. 3. Mild to moderate atrophy. 4. If further evaluation is clinically indicated, an MRI of the brain is recommended. CXR: FINDINGS: Lungs: There is no visualized lung consolidation. The lungs are clear. Pleural space: No pleural effusion. No pneumothorax. Heart/Mediastinum: No cardiomegaly. Vasculature: There is atherosclerotic calcification of the aortic arch. Diaphragm: Elevation of the left hemidiaphragm. Bones/joints: Hypertrophic degenerative changes are noted involving the spine. Osteopenia. IMPRESSION: 1. There is no visualized lung consolidation. 2. Elevation of the left hemidiaphragm. MICROBIOLOGY: Please see below. ASSESSMENT: This is a 69 YO M with history of HTN, gout, recent cognitive decline who presents with several hour history of blurry vision, aphasia, weakness concerning for TIA. PLAN: 1. TIA: Symptoms resolved at the time of examination -CT head negative -MRI ordered and pending -Echo ordered. Patient has 3/6 ELADIO at LUSB -Lipid panel pending -A1c pending -ABCD score calculated at 7 points (age >60, BP>140/90, speech disturbance, weakness, duration of symptoms >60 mins, hx DM2) putting him at 17.8% chance at 90-day stroke. -Will continue home ASA -Continue home atorvastatin -Patient will need Neurology follow up after discharge 2. Macrocytic anemia: -Pending B12/folate -Iron level elevated at 277 3. History of HTN: -Continue [place] 4. HLD: -Lipid panel pending -Continue Atorvastatin 5. History of Gout: patient feels he may be having gouty attack of R 2nd digit -Will check uric acid level -Continue home allopurinol DVT ppx: TEDs/SCDs DISPO: Pending further workup, likely discharge within 48h Vital Signs Vital Signs Date Time Temp Pulse Resp B/P (MAP) Pulse Ox O2 Delivery O2 Flow Rate FiO2 06/01/20 00:41 84 100 06/01/20 00:30 138/62 (87) 05/31/20 20:05 97.9 18 Room Air Laboratory Data Labs 24H Laboratory Tests 2 05/31/20 20:22: Immature Granulocyte % (Auto) 0.2, Neutrophils (%) (Auto) 80.2H, Lymphocytes (%) (Auto) 13.9L, Monocytes (%) (Auto) 5.1H, Eosinophils (%) (Auto) 0.3, Basophils (%) (Auto) 0.3, Neutrophils # (Auto) 8.2, Lymphocytes # (Auto) 1.4L, Monocytes # (Auto) 0.5, Eosinophils # (Auto) 0.0, Basophils # (Auto) 0.0, Nucleated Red Blood Cells % (auto) 0.0, Prothrombin Time 13.4, Prothromb Time International Ratio 1.00, Activated Partial Thromboplast Time 24.0L, Anion Gap 7L, Glomerular Filtration Rate 58.1, Calcium Level 9.4, Total Bilirubin 1.0, Direct Bilirubin 0.3H, Aspartate Amino Transf (AST/SGOT) 16, Alanine Aminotransferase (ALT/SGPT) 32, Alkaline Phosphatase 50, Total Creatine Kinase 129, Creatine Kinase MB 1.9, Creatine Kinase MB Relative Index 1.47, Troponin I < 0.02, Total Protein 6.8, Albumin 4.0, Albumin/Globulin Ratio 1.4 05/31/20 22:03: Coronavirus (COVID-19)(PCR) NEGATIVE, Influenza Type A (RT-PCR) NEGATIVE, Inf luenza Type B (RT-PCR) NEGATIVE, Respiratory Syncytial Virus (PCR) NEGATIVE 05/31/20 23:12: Urine Color COLORLESS, Urine Appearance CLEAR, Urine pH 5.0, Urine Specific Webb 1.008, Urine Protein NEGATIVE, Urine Glucose (UA) NEGATIVE, Urine Ketones NEGATIVE, Urine Blood NEGATIVE, Urine Nitrite NEGATIVE, Urine Bilirubin NEGATIVE, Urine Urobilinogen 0.2, Urine Leukocyte Esterase NEGATIVE, Urine WBC (Auto) 0, Urine RBC (Auto) 1, Urine Hyaline Casts (Auto) 0, Urine Bacteria (Au to) NEGATIVE, Urine Squamous Epithelial Cells 0, Urine Sperm (Auto) , Urine Opiates Screen NEGATIVE, Urine Methadone Screen NEGATIVE, Urine Barbiturates Screen NEGATIVE, Urine Phencyclidine Screen NEGATIVE, Urine Amphetamines Screen NEGATIVE, Urine Benzodiazepines Screen NEGATIVE, Urine Cocaine Metabolite Screen NEGATIVE, Urine Cannabinoids Screen NEGATIVE CBC/BMP Laboratory Tests 05/31/20 20:22 Home Medications Scheduled Allopurinol (Allopurinol) 100 Mg Tablet, 100 MG PO DAILY Aspirin (Aspirin EC) 81 Mg Tablet.dr, 81 MG PO QHS Atorvastatin Calcium (Atorvastatin Calcium) 40 Mg Tablet, 40 MG PO QHS Cetirizine HCl (Cetirizine HCl) 10 Mg Tablet, 10 MG PO DAILY Cyanocobalamin (Vitamin B-12) (Vitamin B-12) 1,000 Mcg Tablet, 1,000 MCG PO DAILY Fluorouracil (Fluorouracil) 5% 40GM Cream..g., 1 DOSE TOP BID Fluticasone Propionate (Fluticasone Propionate) 16 Gm [place].susp, 1 SPRAY NA DAILY Ketoconazole (Ketoconazole) 120 Ml Shampoo, 1 DOSE TOP 2XWK Latanoprost (Xalatan) 0.005% 2.5ML Drops, 1 DROP OU DAILY Losartan Potassium (Losartan Potassium) 50 Mg Tablet, 50 MG PO DAILY Multivitamins (Thera M Plus Tablet) 1 Each Tablet, 1 TAB PO DAILY [place]-3 Fatty Acids/Fish Oil (Fish Oil 1,000 mg Capsule) 1 Each Capsule, 1,000 MG PO DAILY Scheduled PRN Acetaminophen (Mapap) 500 Mg Tablet, 500 MG PO QID PRN for PAIN Ibuprofen (Ibuprofen) 200 Mg Tablet, 400 MG PO Q6H PRN for PAIN Allergies Coded Allergies: No Known Allergies (Unverified , 05/31/20) A-FIB/CHADSVASC A-FIB History Current/History of A-Fib/PAF?: No Current PO Anticoag Therapy: No GME ATTESTATION GME ATTESTATION My faculty preceptor for this patient encounter was physically present during the encounter and was fully available. All aspects of the patient interview, examination, medical decision making process, and medical care plan development were reviewed and approved by the faculty preceptor. The faculty preceptor is aware and concurs with the plan as stated in the body of this note and will attest to such by his/her cosignature. ATTENDING NOTE Time of service 1:05 AM is a 69 yr male with a history of hypertension, diabetes, and dyslipidemia who presented with complaints of transient confusion and expressive aphasia twice yesterday that resolved prior to his arrival in the hospital. Hell be admitted for evaluation of TIA. Plan: Follow-up CTA of the head and the neck, along with MRI of the brain. If TIA is confirmed, because the ABCD2 score is high, I will ask the day time team consider consulting neurology to see the patient is a candidate to switchto Aspirin and Plavix for 21 days followed by Plavix for 90 days. Rest per 's H&P SAROJ ANAND MD Jun 01, 2020 01:12 EDGAR SEN MD Jun 01, 2020 06:58
[2020-06-01 02:33] LABS: CHOLESTEROL LEVEL 87 MG/DL (<200); CHOLESTEROL RISK RATIO 2.806 (<5); FERRITIN 23 NG/ML (26-388); HDL CHOLESTEROL 31 MG/DL (>40); IRON (FE) 277 UG/DL (65-175); LDL CHOLESTEROL 31 MG/DL (<100); NON-HDL-C 56 MG/DL; PERCENT SATURATION 83.7 % (19.7-50.0); TOTAL IRON BINDING CAPACITY 331 UG/DL (250-450); TRIGLYCERIDES LEVEL 125 MG/DL (<150)
--- NOTE | 2020-06-01 03:14 | REPVR ---
PROCEDURE INFORMATION: Exam: CT Angiography Neck With Contrast Exam date and time: 06/01/2020 2:38 AM Age: 69 years old Clinical indication: Other: TIA; Additional info: TIA R/O large vessel occulsion TECHNIQUE: Imaging protocol: Computed tomography angiography of the neck with intravenous contrast. 3D rendering (Not supervised by radiologist): MIP and/or 3D reconstructed images were created by the technologist. Radiation optimization: All CT scans at this facility use at least one of these dose optimization techniques: automated exposure control; mA and/or kV adjustment per patient size (includes targeted exams where dose is matched to clinical indication); or iterative reconstruction. Contrast material: ISO; Contrast volume: 100 ml; Contrast route: INTRAVENOUS (IV); COMPARISON: No relevant prior studies available. FINDINGS: Right common carotid artery: Calcification involving the right common carotid artery without measurable stenosis. Right internal carotid artery: Calcification involving the proximal right ICA without measurable stenosis. Right external carotid artery: No occlusion or stenosis of the origin. Right vertebral artery: No stenosis. No dissection or occlusion. Left common carotid artery: Calcification involving the left common carotid artery without measurable stenosis. Left internal carotid artery: Calcification involving the proximal left ICA. Stenosis measures up to 30%. Left external carotid artery: No occlusion or stenosis of the origin. Left vertebral artery: No stenosis. No dissection or occlusion. Aorta: Aortic calcification. Bones/joints: There are degenerative changes involving the spine. Soft tissues: Normal. No significant soft tissue swelling. Lungs: Emphysema. IMPRESSION: 30% stenosis at the proximal left ICA. REFERENCES: NASCET CRITERIA. The degree of internal carotid artery stenosis is based on NASCET criteria. Normal is no stenosis. Mild is less than 50% stenosis. Moderate is 50-69% stenosis. Severe is 70% to 99% stenosis. Total occlusion is no detectable patent lumen. Electronically signed by: Brenden Alvarez On 06/01/2020 03:14:16 AM
--- NOTE | 2020-06-01 03:18 | REPVR ---
PROCEDURE INFORMATION: Exam: CT Angiography Head With Contrast Exam date and time: 06/01/2020 2:38 AM Age: 69 years old Clinical indication: Other: TIA; Additional info: TIA R/O large vessel occulsion TECHNIQUE: Imaging protocol: Computed tomography angiography of the head with intravenous contrast. 3D rendering (Not supervised by radiologist): MIP and/or 3D reconstructed images were created by the technologist. Radiation optimization: All CT scans at this facility use at least one of these dose optimization techniques: automated exposure control; mA and/or kV adjustment per patient size (includes targeted exams where dose is matched to clinical indication); or iterative reconstruction. Contrast material: ISO; Contrast volume: 100 ml; Contrast route: INTRAVENOUS (IV); COMPARISON: No relevant prior studies available. FINDINGS: ANTERIOR CIRCULATION: Right internal carotid artery: Calcification involving the right carotid siphon without definite significant stenosis. Right middle cerebral artery: Unremarkable. No occlusion or significant stenosis. No aneurysm. Right anterior cerebral artery: Unremarkable. No occlusion or significant stenosis. No aneurysm. Left internal carotid artery: Calcification involving the left carotid siphon without definite significant stenosis. Left middle cerebral artery: Unremarkable. No occlusion or significant stenosis. No aneurysm. Left anterior cerebral artery: Unremarkable. No occlusion or significant stenosis. No aneurysm. POSTERIOR CIRCULATION: Right vertebral artery: Unremarkable. No occlusion or significant stenosis. No aneurysm. Left vertebral artery: Calcification involving the left vertebral artery without stenosis. Basilar artery: Unremarkable. No occlusion or significant stenosis. No aneurysm. Right posterior cerebral artery: Suspect short segment fenestration involving the right [employer]QU[employer]MENT [employer]. Left posterior cerebral artery: Unremarkable. No occlusion or significant stenosis. No aneurysm. Brain: No definite mass, mass effect, or midline shift. Cerebral ventricles: No ventriculomegaly. Bones/joints: Unremarkable. No acute fracture. Soft tissues: Unremarkable. IMPRESSION: No hemodynamically significant stenosis or large vessel occlusion. Electronically signed by: Brenden Alvarez On 06/01/2020 03:18:20 AM
[2020-06-01 03:33] LABS: URIC ACID 4.5 MG/DL (3.5-7.2)
--- NOTE | 2020-06-01 05:34 | ECGEPIP ---
[facility] - ED Test Date: 2020-05-31 Pat Name: JOSE MARTIN STEWART Department: Room: - Gender: Male Dandy Tender: jay : 1950 Requested By: CARMINA Perez Order Number: [id number] Reading MD: Deo Amaya Measurements Intervals [place] Rate: 95 P: 65 [place]: 164 QRS: 16 QRSD: 98 T: 62 QT: 326 QTc: 411 Interpretive Statements SINUS RHYTHM INCOMPLETE RIGHT BUNDLE BRANCH BLOCK NO PRIORS FOR COMPARISON Electronically Signed on 06-01-2020 5:34:20 EST by Deo Amaya
[2020-06-01] MEDS: LATANOPROST 0.005% OPHTH SOLN 2.5 ML OU SCH (09:00)
[2020-06-01] MEDS: LOSARTAN 50MG TABLET PO SCH (09:18)
[2020-06-01] MEDS: allopurinoL 100 MG TAB PO SCH (09:18)
[2020-06-01 10:51] VITALS: BP 148/68
[2020-06-01 11:17] LABS: FOLATE 12.1 NG/ML (>5.4); VITAMIN B12 LEVEL 1741 PG/ML (247-911)
--- NOTE | 2020-06-01 12:53 | REP ---
INDICATION: TIA. COMPARISON: Comparison CT studies are from May 31 and June 01, 2020.. TECHNIQUE: Axial and sagittal imaging planes are utilized for T1 and T2-weighted scans. Sequences include spin-echo, fast spin echo, FLAIR, and diffusion weighted sequences. FINDINGS: No bony calvarial lesion is seen. Craniocervical junction and upper cervical cord are normal in appearance. There is no MR evidence of significant paranasal sinus disease. No intraorbital abnormality is seen. There is generalized volume loss. There is an old lacunar infarct in the subcortical white matter of the left frontal lobe. This is unchanged from the CT study. Diffusion-weighted scans show no evidence to suggest acute ischemia. No focus of restricted diffusion is appreciated. There is no evidence of intracranial hemorrhage. Mild small vessel changes are seen in the periventricular white matter on T2 weighted scans. No mass or extra-axial fluid collection is seen. IMPRESSION: Diffuse atrophy and small vessel changes. Old lacunar infarct subcortical white matter left frontal lobe. No acute intracranial abnormality. No evidence of acute ischemia.. <Electronically signed by Rachid Atkinson > 06/01/20 [id number]
[2020-06-01 14:00] VITALS: BP 143/68
--- NOTE | 2020-06-01 17:28 | IPNPDOC ---
Text Note Date of Service The patient was seen on 06/01/20. NOTE SUBJECTIVE: -Doing well today, speech back to normal, strength and vision back to normal OBJECTIVE: VITAL SIGNS: see below GENERAL: alert and oriented, in no apparent distress, pleasant and conversant in full sentences. HEENT: PERRL, EOMI, Oral mucous membranes are moist without lesions. NECK: The patient has no noted JVD. No adenopathy is appreciated. No thyromegaly CHEST/LUNGS: Lungs are clear bilaterally without rhonchi, rales, or wheezes. There is no subcutaneous air appreciated. There is no tenderness to the chest wall. HEART:Regular rate and rhythm. 3/6 ELADIO heard best at the LUSB radiating to the apex. Distal pulses are 2+. No carotid bruits appreciated. ABDOMEN: Soft, nontender, and nondistended. Bowel sounds are positive. No organomegaly is appreciated. No masses are appreciated. There are no peritoneal signs. There is no [place] sign. EXTREMITIES: R 2nd digit DIP joint slightly inflamed. No peripheral edema. There is no focal long bone tenderness or deformity. SKIN: The patients skin is warm and dry, without rashes or lesions. PSYCHIATRIC: AAO x 3, normal mood/affect NEUROLOGIC: The patient has 5/5 strength to the upper and lower extremities bilaterally. Sensation is intact throughout. Deep tendon reflexes are 2+ in all four extremities. There are no deficits to the cranial nerves. Speech is clear LABORATORY DATA: See below. IMAGING: CT HEAD: FINDINGS: Brain: No acute intracranial hemorrhage is visualized. The white-blanca differentiation is preserved demonstrating no acute territorial type infarct. There are scattered foci of white matter hypodensity, likely representing small vessel ischemic disease. The acuity of the white matter disease is indeterminate. There is no midline shift. Artifact limits evaluation of the dalila. Cerebral ventricles: There is mild to moderate prominence of the ventricles and sulci, compatible with atrophy. Bones/joints: The calvarium demonstrates no evidence for a depressed fracture. Paranasal sinuses: Visualized sinuses are unremarkable. No fluid levels. Mastoid air cells: No mastoid effusion. Vasculature: Intracranial atherosclerosis visualized. Soft tissues: Unremarkable. IMPRESSION: 1. No acute intracranial hemorrhage or acute territorial type infarct. 2. There are scattered foci of white matter hypodensity, likely representing small vessel ischemic disease. 3. Mild to moderate atrophy. 4. If further evaluation is clinically indicated, an MRI of the brain is recommended. CXR: FINDINGS: Lungs: There is no visualized lung consolidation. The lungs are clear. Pleural space: No pleural effusion. No pneumothorax. Heart/Mediastinum: No cardiomegaly. Vasculature: There is atherosclerotic calcification of the aortic arch. Diaphragm: Elevation of the left hemidiaphragm. Bones/joints: Hypertrophic degenerative changes are noted involving the spine. Osteopenia. IMPRESSION: 1. There is no visualized lung consolidation. 2. Elevation of the left hemidiaphragm. CTA brain: ANTERIOR CIRCULATION: Right internal carotid artery: Calcification involving the right carotid siphon without definite significant stenosis. Right middle cerebral artery: Unremarkable. No occlusion or significant stenosis. No aneurysm. Right anterior cerebral artery: Unremarkable. No occlusion or significant stenosis. No aneurysm. Left internal carotid artery: Calcification involving the left carotid siphon without definite significant stenosis. Left middle cerebral artery: Unremarkable. No occlusion or significant stenosis. No aneurysm. Left anterior cerebral artery: Unremarkable. No occlusion or significant stenosis. No aneurysm. POSTERIOR CIRCULATION: Right vertebral artery: Unremarkable. No occlusion or significant stenosis. No aneurysm. Left vertebral artery: Calcification involving the left vertebral artery without stenosis. Basilar artery: Unremarkable. No occlusion or significant stenosis. No aneurysm. 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 Left posterior cerebral artery: Unremarkable. No occlusion or significant stenosis. No aneurysm. Brain: No definite mass, mass effect, or midline shift. Cerebral ventricles: No ventriculomegaly. Bones/joints: Unremarkable. No acute fracture. Soft tissues: Unremarkable. IMPRESSION: No hemodynamically significant stenosis or large vessel occlusion. MRI brain: FINDINGS: No bony calvarial lesion is seen. Craniocervical junction and upper cervical cord are normal in appearance. There is no MR evidence of significant paranasal sinus disease. No intraorbital abnormality is seen. There is generalized volume loss. There is an old lacunar infarct in the subcortical white matter of the left frontal lobe. This is unchanged from the CT study. Diffusion-weighted scans show no evidence to suggest acute ischemia. No focus of restricted diffusion is appreciated. There is no evidence of intracranial hemorrhage. Mild small vessel changes are seen in the periventricular white matter on T2 weighted scans. No mass or extra-axial fluid collection is seen. IMPRESSION: Diffuse atrophy and small vessel changes. Old lacunar infarct subcortical white matter left frontal lobe. No acute intracranial abnormality. No evidence of acute ischemia. CTA neck: Right common carotid artery: Calcification involving the right common carotid artery without measurable stenosis. Right internal carotid artery: Calcification involving the proximal right ICA without measurable stenosis. Right external carotid artery: No occlusion or stenosis of the origin. Right vertebral artery: No stenosis. No dissection or occlusion. Left common carotid artery: Calcification involving the left common carotid artery without measurable stenosis. Left internal carotid artery: Calcification involving the proximal left ICA. Stenosis measures up to 30%. Left external carotid artery: No occlusion or stenosis of the origin. Left vertebral artery: No stenosis. No dissection or occlusion. Aorta: Aortic calcification. Bones/joints: There are degenerative changes involving the spine. Soft tissues: Normal. No significant soft tissue swelling. Lungs: Emphysema. IMPRESSION: 30% stenosis at the proximal left ICA. MICROBIOLOGY: Please see below. ASSESSMENT: This is a 69 YO M with history of HTN, gout, recent cognitive decli ne who presents with several hour history of blurry vision, aphasia, weakness concerning for TIA. PLAN: 1. TIA: Symptoms resolved at the time of examination -CT head negative -MRI negative for acute ischemia, CTA neck with 30% L proximal ICA stenosis, CTA brain without clinically significant disease -Echo ordered. Patient has 3/6 ELADIO at LUSB -Lipid panel pending -A1c wnl -ABCD score calculated at 7 points (age >60, BP>140/90, speech disturbance, weakness, duration of symptoms >60 mins, hx DM2) putting him at 17.8% chance at 90-day stroke. -Will continue home ASA -Continue home atorvastatin -Patient will need Neurology follow up after discharge 2. Macrocytic anemia: -Pending B12/folate -Iron level elevated at 277, however ferritin was low 3. History of HTN: -Continue [place] 4. HLD: -Lipid panel pending -Continue Atorvastatin 5. History of Gout: patient feels he may be having gouty attack of R 2nd digit -uric acid level wnl -Continue home allopurinol DVT ppx: TEDs/SCDs DISPO: Likely hoe tomorrow, PT/OT, likely discharge within 48h VS,Fishbone, I+O VS, Fishbone, I+O Laboratory Tests 05/31/20 20:22 Vital Signs Date Time Temp Pulse Resp B/P (MAP) Pulse Ox O2 Delivery O2 Flow Rate FiO2 1/21/21 14:00 98.3 88 16 143/68 (93) 97 Room Air I&O- Last 24 Hours up to 6 AM 06/01/20 06:00 Intake Total 1000 ml Output Total 2000 ml Balance -1000 ml SARA BRAND MD Jun 01, 2020 14:29
[2020-06-01] MEDS ORDERED: ATORVASTATIN 20 MG TAB PO SCH (21:00)
[2020-06-01] MEDS ORDERED: ASPIRIN 81 MG ENTERIC TAB PO SCH (21:00)
[2020-06-01 22:00] VITALS: BP 113/56
[2020-06-02 06:00] VITALS: BP 131/89
[2020-06-02] MEDS: LATANOPROST 0.005% OPHTH SOLN 2.5 ML OU SCH (09:00)
--- NOTE | 2020-06-02 09:01 | DS.PDOC ---
Discharge Summary General Date of Admission Jun 01, 2020 at 00:54 Date of Discharge 06/02/2020 Attending Physician: SARA BRAND MD Discharge Summary PROCEDURES PERFORMED DURING STAY: None ADMITTING DIAGNOSES: TIA DISCHARGE DIAGNOSES: TIA History of DM2, diet controlled Recent history memory/cognitive decline Gout HLD Seasonal allergies HTN COMPLICATIONS/CHIEF COMPLAINT: TIA. HISTORY OF PRESENT ILLNESS: Fritz Ruiz is a 69 YO M with history of HTN, Gout, recent cognitive decline who presented to the ED with several hours history of blurry vision, weakness, speech difficulty. He stated that while he and his were watching the Presidential Inauguration around 1:00PM, he started to notice that he was having difficulty understanding what was being said on TV. He then went to take his dog out for a walk and realized when he returned home that his vision had gotten blurry or "foggy" and he felt incredibly week. He also reports that his noticed some slurred speech and word-finding difficulty, so she activated EMS around 1800. The patient also reported having chills and loss of appetite at that time. He denied any recent illnesses and the only new medication he has begun taking is Cetirizine for his seasonal allergies. Of note, the patient reports that his PCP has been working him up for some recent cognitive decline and had scheduled for him to have an upcoming MRI. He stated that over the past several months he has noticed a gradual decline in his memory. He denied any changes in his gait or other neurologic symptoms such as incontinence, neuropathy, tremors, etc. HOSPITAL COURSE: He was HDS, afebrile, was covid-19 negative and breathing comfortably on room air. By the time he arrived, symptoms had remitted and he was back to baseline. CT head was negative for acute pathology and he was admitted for CVA vs. TIA workup. His CTA head, MRI brain, CTA neck were negative for clinically significant findings, ischemia, stenosis or occlusion. He continued to do well, telemetry was stable and he was continued on ASA81 and lipitor 40 per home scripts. He is now being discharged home to follow up with his PCP. DISCHARGE MEDICATIONS: Please see below. ALLERGIES: Please see below. PHYSICAL EXAMINATION ON DISCHARGE: VITAL SIGNS: Please see below. GENERAL: alert and oriented, in no apparent distress, pleasant and conversant in full sentences. HEENT: PERRL, EOMI, Oral mucous membranes are moist without lesions. NECK: The patient has no noted JVD. No adenopathy is appreciated. No thyromegaly CHEST/LUNGS: Lungs are clear bilaterally without rhonchi, rales, or wheezes. There is no subcutaneous air appreciated. There is no tenderness to the chest wall. HEART:Regular rate and rhythm. 3/6 ELADIO heard best at the LUSB radiating to the apex. Distal pulses are 2+. No carotid bruits appreciated. ABDOMEN: Soft, nontender, and nondistended. Bowel sounds are positive. No organomegaly is appreciated. No masses are appreciated. There are no peritoneal signs. There is no [place] sign. EXTREMITIES: No peripheral edema. There is no focal long bone tenderness or deformity or joints erythema SKIN: The patients skin is warm and dry, without rashes or lesions. PSYCHIATRIC: AAO x 3, normal mood/affect NEUROLOGIC: The patient has 5/5 strength to the upper and lower extremities bilaterally. Sensation is intact throughout. There are no deficits to the cranial nerves. Speech is clear LABORATORY DATA: See below. IMAGING: CT HEAD: FINDINGS: Brain: No acute intracranial hemorrhage is visualized. The white-blanca differentiation is preserved demonstrating no acute territorial type infarct. There are scattered foci of white matter hypodensity, likely representing small vessel ischemic disease. The acuity of the white matter disease is indeterminate. There is no midline shift. Artifact limits evaluation of the dalila. Cerebral ventricles: There is mild to moderate prominence of the ventricles and sulci, compatible with atrophy. Bones/joints: The calvarium demonstrates no evidence for a depressed fracture. Paranasal sinuses: Visualized sinuses are unremarkable. No fluid levels. Mastoid air cells: No mastoid effusion. Vasculature: Intracranial atherosclerosis visualized. Soft tissues: Unremarkable. IMPRESSION: 1. No acute intracranial hemorrhage or acute territorial type infarct. 2. There are scattered foci of white matter hypodensity, likely representing small vessel ischemic disease. 3. Mild to moderate atrophy. 4. If further evaluation is clinically indicated, an MRI of the brain is recommended. CXR: FINDINGS: Lungs: There is no visualized lung consolidation. The lungs are clear. Pleural space: No pleural effusion. No pneumothorax. Heart/Mediastinum: No cardiomegaly. Vasculature: There is atherosclerotic calcification of the aortic arch. Diaphragm: Elevation of the left hemidiaphragm. Bones/joints: Hypertrophic degenerative changes are noted involving the spine. Osteopenia. IMPRESSION: 1. There is no visualized lung consolidation. 2. Elevation of the left hemidiaphragm. CTA brain: ANTERIOR CIRCULATION: Right internal carotid artery: Calcification involving the right carotid siphon without definite significant stenosis. Right middle cerebral artery: Unremarkable. No occlusion or significant stenosis. No aneurysm. Right anterior cerebral artery: Unremarkable. No occlusion or significant stenosis. No aneurysm. Left internal carotid artery: Calcification involving the left carotid siphon without definite significant stenosis. Left middle cerebral artery: Unremarkable. No occlusion or significant stenosis. No aneurysm. Left anterior cerebral artery: Unremarkable. No occlusion or significant stenosis. No aneurysm. POSTERIOR CIRCULATION: Right vertebral artery: Unremarkable. No occlusion or significant stenosis. No aneurysm. Left vertebral artery: Calcification involving the left vertebral artery without stenosis. Basilar artery: Unremarkable. No occlusion or significant stenosis. No aneurysm. 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 Left posterior cerebral artery: Unremarkable. No occlusion or significant stenosis. No aneurysm. Brain: No definite mass, mass effect, or midline shift. Cerebral ventricles: No ventriculomegaly. Bones/joints: Unremarkable. No acute fracture. Soft tissues: Unremarkable. IMPRESSION: No hemodynamically significant stenosis or large vessel occlusion. MRI brain: FINDINGS: No bony calvarial lesion is seen. Craniocervical junction and upper cervical cord are normal in appearance. There is no MR evidence of significant paranasal sinus disease. No intraorbital abnormality is seen. There is generalized volume loss. There is an old lacunar infarct in the subcortical white matter of the left frontal lobe. This is unchanged from the CT study. Diffusion-weighted scans show no evidence to suggest acute ischemia. No focus of restricted diffusion is appreciated. There is no evidence of intracranial hemorrhage. Mild small vessel changes are seen in the periventricular white matter on T2 weighted scans. No mass or extra-axial fluid collection is seen. IMPRESSION: Diffuse atrophy and small vessel changes. Old lacunar infarct subcortical white matter left frontal lobe. No acute intracranial abnormality. No evidence of acute ischemia. CTA neck: Right common carotid artery: Calcification involving the right common carotid artery without measurable stenosis. Right internal carotid artery: Calcification involving the proximal right ICA without measurable stenosis. Right external carotid artery: No occlusion or stenosis of the origin. Right vertebral artery: No stenosis. No dissection or occlusion. Left common carotid artery: Calcification involving the left common carotid artery without measurable stenosis. Left internal carotid artery: Calcification involving the proximal left ICA. Stenosis measures up to 30%. Left external carotid artery: No occlusion or stenosis of the origin. Left vertebral artery: No stenosis. No dissection or occlusion. Aorta: Aortic calcification. Bones/joints: There are degenerative changes involving the spine. Soft tissues: Normal. No significant soft tissue swelling. Lungs: Emphysema. IMPRESSION: 30% stenosis at the proximal left ICA. PROGNOSIS: Good ACTIVITY: As tolerated DIET: Regular DISCHARGE PLAN: Home DISPOSITION: Home DISCHARGE INSTRUCTIONS: PCP follow up for TIA ITEMS TO FOLLOWUP ON ON OUTPATIENT: TIA Cognitive decline workup per PCP DISCHARGE CONDITION: Stable TIME SPENT ON DISCHARGE: 40 minutes. Vital Signs/I&Os Vital Signs Date Time Temp Pulse Resp B/P (MAP) Pulse Ox O2 Delivery O2 Flow Rate FiO2 06/02/20 06:00 97.6 79 17 131/89 (103) 98 Room Air I&O- Last 24 Hours up to 6 AM 06/02/20 06:00 Intake Total 855 ml Output Total 3025 ml Balance -2170 ml Discharge Medications Scheduled Allopurinol (Allopurinol) 100 Mg Tablet, 100 MG PO DAILY, (Reported) Aspirin (Aspirin EC) 81 Mg Tablet.dr, 81 MG PO QHS, (Reported) Atorvastatin Calcium (Atorvastatin Calcium) 40 Mg Tablet, 40 MG PO QHS, (Reported) Cetirizine HCl (Cetirizine HCl) 10 Mg Tablet, 10 MG PO DAILY, (Reported) Cyanocobalamin (Vitamin B-12) (Vitamin B-12) 1,000 Mcg Tablet, 1,000 MCG PO DAILY, (Reported) Fluorouracil (Fluorouracil) 5% 40GM Cream..g., 1 DOSE TOP BID, (Reported) Fluticasone Propionate (Fluticasone Propionate) 16 Gm [place].susp, 1 SPRAY NA DAILY, (Reported) Ketoconazole (Ketoconazole) 120 Ml Shampoo, 1 DOSE TOP 2XWK, (Reported) Latanoprost (Xalatan) 0.005% 2.5ML Drops, 1 DROP OU DAILY, (Reported) Losartan Potassium (Losartan Potassium) 50 Mg Tablet, 50 MG PO DAILY, (Reported) Multivitamins (Thera M Plus Tablet) 1 Each Tablet, 1 TAB PO DAILY, (Reported) Rhodelia-3 Fatty Acids/Fish Oil (Fish Oil 1,000 mg Capsule) 1 Each Capsule, 1,000 MG PO DAILY, (Reported) Scheduled PRN Acetaminophen (Mapap) 500 Mg Tablet, 500 MG PO QID PRN for PAIN, (Reported) Ibuprofen (Ibuprofen) 200 Mg Tablet, 400 MG PO Q6H PRN for PAIN, (Reported) Allergies Coded Allergies: No Known Allergies (Unverified , 05/31/20) SARA BRAND MD Jun 02, 2020 09:01
[2020-06-02 09:53] VITALS: BP 131/89
[2020-06-02] MEDS: LOSARTAN 50MG TABLET PO SCH (09:53)
[2020-06-02] MEDS: allopurinoL 100 MG TAB PO SCH (09:53)
--- NOTE | 2020-06-02 12:20 | ECHO ---
DATE OF PROCEDURE: 06/01/2020 Age: 69 Gender: Female Height: 170 cm Weight: 93 kg REFERRING PHYSICIAN: Andie Castillo MD INDICATION: Transient ischemic attack (TIA). MEASUREMENTS: IVS 1.2 cm LVPW 1.3 cm LV 2.8 LA 2.7 cm Aorta 3.6 cm IVC 1.7 cm Mitral E wave velocity 96 Mitral A wave 91 E prime septal 9.4 E prime lateral 8.7 FINDINGS: This study is of acceptable technical quality. Patient is in sinus rhythm. Left ventricle has normal size and hyperdynamic systolic function, estimated LVEF approximately 70%. Mild left ventricular hypertrophy is noted. Right ventricle has normal size and systolic function. Both atria appear normal. Aortic valve is mildly sclerotic, but has three cusps and preserved mobility. Mitral and tricuspid valves appear normal. Pulmonic valve was poorly visualized. No pericardial effusion is noted. Inferior vena cava is of normal size and appropriately collapses with inspiration indicative of normal central venous pressure. The aortic root is normal. Aortic arch and abdominal aorta were not well seen. Doppler interrogation reveals competent aortic valve with no stenosis and only trivial insufficiency. There is also competent mitral and tricuspid valve. Mitral inflow pattern and tissue Doppler imaging of the mitral annulus revealed likely normal diastolic function. CONCLUSIONS: 1. Study is of good technical quality, underlying sinus rhythm. 2. Normal LV size with mild LVH and preserved systolic and diastolic function. 3. No significant valvular disease. 4. Normal central venous pressure. Unable to estimate pulmonary artery pressure. MTDD
== END 2020-06-02 11:30 | disposition home or self-care (01) | DRG 69 ==
LOC: M ED 19:55 → M 4MAIN 06-01 00:54 → ENRESERV 06-01 01:20 → M ED INP 06-01 02:42 → M MSPAV 06-01 10:52
PROVIDERS: ADMIT Internal Medicine; ATTEND Internal Medicine
DX: G45.9 Transient cerebral ischemic attack, unspecified (principal); D53.9 Nutritional anemia, unspecified; I10 Essential (primary) hypertension; M10.9 Gout, unspecified; E11.9 Type 2 diabetes mellitus without complications; E78.5 Hyperlipidemia, unspecified; J30.2 Other seasonal allergic rhinitis; R41.81 Age-related cognitive decline; Z87.891 Personal history of nicotine dependence; Z79.82 Long term (current) use of aspirin; Z79.899 Other long term (current) drug therapy; Z11.52 Encounter for screening for COVID-19